=== PATIENT | male | born 1975 | race African-American/Black ===

== ENCOUNTER 2017-05-07 14:34 | Inpatient (IN) | payer MEDICARE, OTHER ==
[~2017-05-07] VITALS: Ht 218.4 cm; Wt 135.4 kg
[~2017-05-07 14:34] MED LIST: ALLO100T PO; CALC1CAP PO; CREON12 PO; DOXA1TAB43 PO; HYDR4TAB PO; LORA1TAB12 PO; SENS90TA PO; SEVEL800 PO
[2017-05-07] MEDS ORDERED: PANT40TA3 PO (14:41)
[2017-05-07] MEDS ORDERED: CALC500 PO (14:41)
[2017-05-07] MEDS ORDERED: Heparin Inj SQ (14:41)
[2017-05-07] MEDS ORDERED: LIDO1ADH4 T-DERMAL (14:41)
[2017-05-07] MEDS ORDERED: METO25TA3 PO (14:41)
[2017-05-07] MEDS ORDERED: MIDO5TAB PO (14:41)
[2017-05-07] MEDS ORDERED: Albuterol-Ipratropium Neb NEB (14:41)
[2017-05-07 15:40] VITALS: BP 110/65; PULSE 126; RESP 20; TEMP 99.7; O2SAT 94
[2017-05-07] MEDS ORDERED: MAGNESIUM HYDROXIDE SUSP 30 ML CUP PO PRN (17:00)
[2017-05-07] MEDS ORDERED: ACETAMINOPHEN 325 MG TAB PO PRN (17:00)
[2017-05-07] MEDS ORDERED: TEMAZEPAM 15 MG CAP PO PRN (17:00)
[2017-05-07] MEDS ORDERED: NALOXONE HCL 0.4 MG/ML AMP IV PUSH PRN (17:00)
[2017-05-07] MEDS ORDERED: SENNOSIDES 8.6 MG TAB PO PRN (17:00)
[2017-05-07] MEDS ORDERED: ONDANSETRON HCL 4 MG/2 ML VIAL IVP PRN (17:00)
[2017-05-07] MEDS ORDERED: LACTULOSE SYRUP 20 GM/30 ML CUP PO PRN (17:00)
[2017-05-07] MEDS ORDERED: BISACODYL 10 MG SUPP RECTAL PRN (17:00)
[2017-05-07] MEDS ORDERED: SODIUM CHLORIDE 0.9% FLUSH 10 ML FLUSH IV FLUSH PRN (17:00)
[2017-05-07] MEDS ORDERED: HYDROmorphone HCL PF 2 MG/ML VIAL IV PRN (17:15)
--- NOTE | 2017-05-07 17:48 | HHI.HP ---
HPI Service [facility] Hospitalists Primary Care Physician Unknown Admission Diagnosis Diagnoses: (1) Atrial fibrillation with RVR Diagnosis: Principal (2) Hypertension (3) End stage renal disease on dialysis (4) Closed fracture of right patella (5) Closed left humeral fracture Chief Complaint: a.fib Travel History International Travel<30 Days: No Contact w/Intl Traveler <30 Da: No Traveled to Known Affected Are: No History of Present Illness Written by Christopher Gonzalez, acting as scribe for [Siomara] on 05/07/17 at 17:48. 51-year-old male with past medical history significant for HTN, ESRD on HD, DM, stent placement, SVT, and A. fib with RVR. Patient was originally hospitalized at [facility] on 04/28/17 following a fall at home which resulted in left humeral fracture and right tibial plateau fracture. Patient was seen and evaluated by orthopedic services while hospitalized to recommended service treatment with no surgery. Discharged from [facility] on 05/03 and admitted to [facility] inpatient rehabilitation. While patient was in [facility] developed A. fib with RVR along with hypotension. Cardiology services were consulted however his mgmt consultant was unable to see him while he was in the outpatient setting. Of note patient was scheduled for cardiac procedure on 05/03 which she was unable to attend due to fractures and transferred to [facility]. While in rehabilitation center he was started on beta coretta which was unable to be administered due to symptomatic hypotension. He was discharged from [facility] inpatient rehabilitation and placed on inpatient status for cardiology to evaluate for possible intervention. He was seen while still in [facility] this morning he is awake, alert, and oriented in no acute distress or pain. He does endorse lightheadedness, SOB along with feeling heart palpitations. He denies any headache, nausea, fevers, chills, chest pains. Discussed with Dr. Dr Granado rehab physician, patient and the physician covering for . Patient will be transferred to telemetry floor once bed becomes available. Patient was made aware of plan and is agreeable. Review of Systems Except as stated in HPI: all other systems reviewed are Neg Past Family Social History Past Medical History End-stage renal disease on hemodialysis Failed renal transplant Hypertension Diabetes Anemia SVT A. fib with RVR Stent placement (unsure what kind) Past Surgical History Renal transplant 2002 AV fistula left forearm Reported Medications Reported Meds & Active Scripts Active Pantoprazole (Pantoprazole Sodium) 40 Mg Tab 40 Mg PO DAILY 30 Days Oyster Calcium (Oyster Shell) 500 Mg Calcium (1250 Mg) Tab 500 Mg PO Q12HR 30 Days Metoprolol Tartrate 25 Mg Tab 12.5 Mg PO Q12HR 30 Days [Heparin Inj] 21556 UNITS/ML Inj 5,000 Units SQ Q12HR 30 Days Midodrine 5 Mg Tab 5 Mg PO TID@07,12,17 30 Days [Albuterol-Ipratropium Neb] 1 AMPULE Nebu 1 Ampule NEB Q8HR NEB 30 Days Lidoderm (Lidocaine) 5 % Adh..patch 1 Patch T-DERMAL DAILY 30 Days Reported Renvela (Sevelamer Carbonate) 800 Mg Tab 800 Mg PO TID Creon (Amylase/Lipase/Protease) 12,000-38,000-60,000 Units Cap 1 Cap PO BIDAC Lorazepam 1 Mg Tab 1 Mg PO Q8H PRN Hydromorphone (Hydromorphone HCl) 4 Mg Tab 8 Mg PO Q4H PRN Doxazosin (Doxazosin Mesylate) 8 Mg Tab 16 Mg PO DAILY Sensipar (Cinacalcet) 90 Mg Tab 90 Mg PO BID Calcium Acetate (Phosphate Binder) 667 Mg Cap 2,668 Mg PO TID Allopurinol 100 Mg Tab 100 Mg PO DAILY Allergies: Coded Allergies: potassium (Verified Allergy, Severe, Respiratory Failure, 05/04/17) amoxicillin (Verified Allergy, Unknown, 05/03/17) clavulanic acid (Verified Allergy, Unknown, 05/03/17) iopamidol (Unverified Allergy, Unknown, ALLERGY TO IODINE, 11/23/16) Family History Reports significant family history of kidney disease. Social History Tobacco: Denies Alcohol use: Occasionally Illicit drug use: Denies Physical Exam Physical Exam GENERAL: This is a well-nourished, well-developed, tall man, in no apparent distress. SKIN: No rashes, ecchymoses or lesions. Cool and dry. HEAD: Atraumatic. Normocephalic. EYES: Pupils equal round and reactive. Extraocular motions intact. No scleral icterus. No injection or drainage. ENT: Nose without bleeding, purulent drainage or septal hematoma. Throat without erythema. Uvula midline. Airway patent. NECK: Trachea midline. No JVD. Supple, nontender. CARDIOVASCULAR: Fast and irregular rate and rhythm without murmurs, gallops, or rubs. Left forearm AV fistula with positive bruit and thrill. RESPIRATORY: Clear to auscultation. Breath sounds equal bilaterally. No wheezes , rales, or rhonchi. GASTROINTESTINAL: Abdomen soft, non-tender, nondistended. No guarding. MUSCULOSKELETAL: Extremities without clubbing or cyanosis. Left arm in sling with visible left elbow edema, right leg immobilizer in place. Capillary refill <3 seconds for left hand right foot toes. NEUROLOGICAL: Awake and alert. Cranial nerves II through XII intact. Motor and sensory grossly within normal limits. Strength limited on left upper extremity and right lower extremity secondary to fractures. Normal speech, no facial droop. Caprini VTE Risk Assessment Caprini VTE Risk Assessment: Mod/High Risk (score >= 2) Caprini Risk Assessment Model Point Value = 1 Point Value = 2 Point Value = 3 Point Value = 5 Age 41-60 Minor surgery BMI > 25 kg/m2 Swollen legs Varicose veins or History of unexplained or recurrent spontaneous Oral contraceptives or hormone replacement Sepsis (< 1 month) Serious lung disease, including pneumonia (< 1 month) Abnormal pulmonary function Acute myocardial infarction Congestive heart failure (< 1 month) History of inflammatory bowel disease Medical patient at bed rest Age 61-74 Arthroscopic surgery Major open surgery (> 45 min) Laparoscopic surgery (> 45 min) Malignancy Confined to bed (> 72 hours) Immobilizing plaster cast Central venous access Age >= 75 History of VTE Family history of VTE Factor V Leiden Prothrombin [id number] Lupus anticoagulant Anticardiolipin antibodies Elevated serum homocysteine Heparin-induced thrombocytopenia Other congenital or acquired thrombophilia Stroke (< 1 month) Elective arthroplasty Hip, pelvis, or leg fracture Acute spinal cord injury (< 1 month) Prophylaxis Regimen Total Risk Factor Score Risk Level Prophylaxis Regimen 0-1 Low Early ambulation 2 Moderate Order ONE of the following: *Sequential Compression Device (SCD) *Heparin 5000 units SQ BID 3-4 Higher Order ONE of the following medications: *Heparin 5000 units SQ TID *Enoxaparin/Lovenox 40 mg SQ daily (WT < 150 kg, CrCl > 30 mL/min) *Enoxaparin/Lovenox 30 mg SQ daily (WT < 150 kg, CrCl > 10-29 mL/min) *Enoxaparin/Lovenox 30 mg SQ BID (WT < 150 kg, CrCl > 30 mL/min) AND/OR *Sequential Compression Device (SCD) 5 or more Highest Order ONE of the following medications: *Heparin 5000 units SQ TID (Preferred with Epidurals) *Enoxaparin/Lovenox 40 mg SQ daily (WT < 150 kg, CrCl > 30 mL/min) *Enoxaparin/Lovenox 30 mg SQ daily (WT < 150 kg, CrCl > 10-29 mL/min) *Enoxaparin/Lovenox 30 mg SQ BID (WT < 150 kg, CrCl > 30 mL/min) AND *Sequential Compression Device (SCD) Assessment and Plan Assessment and Plan 41-year-old male past medical history significant for HTN, ESRD on HD, DM II, stent placement, and SVT. Recently admitted to [facility] on 04/28/17 following a fall sustained who sustained left humeral and right patella fractures both nonoperable. Patient was admitted to [facility], however developed A. fib with RVR and needed to be transferred to inpatient side for cardiology evaluation and possible procedure. A. fib with RVR - Patient with history of SVT. Previously scheduled for cardiac procedure by on date of admission to [facility]. - EKG done while at [facility] reviewed, heart rate 114 showing A. fib with RVR. - Placed consul to 's, spoke to who is covering, discussed patient with him. Appreciate recommendations. - Admitted to tele floor for close monitoring - Continue metoprolol 12.5 mg by mouth twice a day for rate control. Hx HTN now with hypotension - Continue metoprolol due to new onset of A. fib - Continue Midodrin - Monitor for hypotension ESRD on HD - Patient with a history of failed kidney transplant on hemodialysis Tuesday / Tuesday/Tuesday - Completes dialysis at [facility] in [place] under the care of - Consult placed for nephrology to assist with ongoing dialysis treatments, appreciate recommendations Left humeral fracture Right tibial plateau fracture - Patient was seen and evaluated by orthopedic services while at [facility]. Recommendations were made for left humeral fracture to be placed in a shoulder immobilizer, nonweightbearing, conservative treatment with follow-up in 2 weeks as outpatient. - Right tibial plateau fracture conservative treatment recommendation with knee immobilizer, strict nonweightbearing, follow-up as outpatient in 2 weeks. - Rehabilitation efforts by primary team - Pain control with by mouth Dilaudid, IV Dilaudid for breakthrough pain. Continue close monitoring for oversedation. DM II -Hemoglobin A1c checked when patient was in [facility], 4.2. No longer diabetic. Anemia Pica - Secondary to renal disease, patient received iron sucrose on 05/09 with dialysis treatment. DVT prophylaxis - Heparin subcutaneous This note was transcribed by MARCELLO Pedraza. I, Dr. Addie Stringer personally performed the history, physical exam, and medical decision making; and confirmed the accuracy of the information in the transcribed note. Authenticated by Dr. Addie Stringer on 05/07/17 at 17:48. Discussed Condition With Physician Certification 2 Midnight Certification Type: Admission for Inpatient Services Order for Inpatient Services The services are ordered in accordance with Medicare regulations or non- Medicare payer requirements, as applicable. In the case of services not specified as inpatient-only, they are appropriately provided as inpatient services in accordance with the 2-midnight benchmark. Estimated LOS (days): 3 days is the estimated time the patient will need to remain in the hospital, assuming treatment plan goals are met and no additional complications. Post-Hospital Plan: Not yet determined Christopher Gonzalez May 07, 2017 17:48 Addie Stringer MD May 07, 2017 18:22
[2017-05-07] MEDS: HYDROmorphone HCL 2 MG TAB PO PRN (18:40)
[2017-05-07 20:00] VITALS: BP 116/72; PULSE 110; RESP 18; TEMP 97.1; O2SAT 95
[2017-05-07] MEDS: HEPARIN SODIUM - SQ 10,000 UNITS/ML VIAL SQ SCH (20:24)
[2017-05-07] MEDS: LORazepam 1 MG TAB PO PRN (20:24)
[2017-05-07] MEDS: METOPROLOL TARTRATE 25 MG TAB PO SCH (20:24)
[2017-05-07] MEDS: DOCUSATE SODIUM 50 MG/SENNA 8.6 MG TAB PO SCH (20:24)
[2017-05-07] MEDS: SODIUM CHLORIDE 0.9% FLUSH 10 ML FLUSH IV FLUSH SCH (20:24)
[2017-05-07] MEDS: REMOVE OLD PATCH T-DERMAL SCH (21:00)
[2017-05-07] MEDS: CALCIUM ACETATE 667 MG CAP PO SCH (23:03)
[2017-05-07] MEDS: MIDODRINE 5 MG TAB PO SCH (23:03)
[2017-05-07] MEDS: CINACALCET HYDROCHLORIDE 30 MG TAB PO SCH (23:04)
[2017-05-07] MEDS: SEVELAMER CARBONATE 800 MG TAB PO SCH (23:08)
[2017-05-07 23:48] VITALS: PULSE 99
[2017-05-08] VITALS (11 sets, daily range): BP systolic 106–135; BP diastolic 69–80; PULSE 55–99; RESP 16–21; TEMP 97.5–98.3; O2SAT 94–100
[2017-05-08] MEDS: HYDROmorphone HCL 2 MG TAB PO PRN ×4 (03:29→20:28)
[2017-05-08] MEDS: CALCIUM ACETATE 667 MG CAP PO SCH ×3 (08:00→17:00)
[2017-05-08] MEDS: HEPARIN SODIUM - SQ 10,000 UNITS/ML VIAL SQ SCH ×3 (09:00→20:29)
[2017-05-08] MEDS ORDERED: DOXAZOSIN MESYLATE 4 MG TAB PO SCH (09:00)
[2017-05-08] MEDS: DOCUSATE SODIUM 50 MG/SENNA 8.6 MG TAB PO SCH ×2 (09:00→20:23)
--- NOTE | 2017-05-08 09:51 | HHI.PR ---
Subjective Remarks This is a pleasant 51 y/o Female with Hypertension, ESRD on HD, DM, Stent placement, SVT and Atrial fibrillation with RVR, initially at [facility] admitted 04/28/17 secondary to Fall at home with secondary left Humeral fracture and right tibial plateau fracture, seen by Orthopedic surgery and did not recommend surgical procedure, was Discharged from [facility] on 05/03/17 and admitted to [facility] inpatient rehabilitation. While patient was in [facility] developed A. fib with RVR along with hypotension. Cardiology services were consulted however his bag repairer was unable to see him while he was in the outpatient setting. Of note patient was scheduled for cardiac procedure on 05/03 which she was unable to attend due to fractures and transferred to [facility]. While in rehabilitation center he was started on beta coretta which was unable to be administered due to symptomatic hypotension. He was discharged from [facility] and placed on inpatient status for cardiology to evaluate for possible intervention. He was seen while still in [facility] this morning he is awake, alert , and oriented in no acute distress or pain. He does endorse lightheadedness, SOB along with feeling heart palpitations. He denies any headache, nausea, fevers, chills, chest pains. Discussed with Dr. Dr Granado rehab physician, patient and the physician covering for . Patient will be transferred to telemetry floor once bed becomes available. Patient was made aware of plan and is agreeable. Consults placed for Cardiology, Nephrology and Pharmacy Analyst and was transferred to the Floor. 05/08: Seen in his bedroom, discussed with nurse, as per billing specialist to continue medicines, Decreased Doxazosin, awaiting Primary billing specialist doctor Jesus Manuel for further management. No nausea, vomit or diarrhea. Objective Vital Signs Date Time Temp Pulse Resp B/P (MAP) Pulse Ox O2 Delivery O2 Flow Rate FiO2 05/08/17 04:00 98.3 95 19 117/71 (86) 98 05/08/17 03:47 98 05/08/17 00:00 97.5 55 18 135/78 (97) 95 05/07/17 23:48 99 05/07/17 20:28 Room Air 05/07/17 20:00 Room Air 05/07/17 20:00 97.1 110 18 116/72 (87) 95 05/07/17 18:15 Room Air 05/07/17 15:40 99.7 126 20 110/65 (80) 94 I/O 05/07/17 05/07/17 05/07/17 05/08/17 05/08/17 05/08/17 07:00 15:00 23:00 07:00 15:00 23:00 Intake Total 720 ml Balance 720 ml Intake Oral 720 ml # Voids 1 # Bowel Movements 0 Imaging No new Imaging studies. Procedures None Other Results Laboratory Tests Test 05/08/17 13:14 05/09/17 13:08 White Blood Count 4.4 TH/MM3 Red Blood Count 2.58 MIL/MM3 Hemoglobin 8.8 GM/DL Hematocrit 26.1 % Mean Corpuscular Volume 101.2 FL Mean Corpuscular Hemoglobin 34.3 PG Mean Corpuscular Hemoglobin Concent 33.9 % Red Cell Distribution Width 15.2 % Platelet Count 112 TH/MM3 Mean Platelet Volume 8.4 FL Neutrophils (%) (Auto) 72.4 % Lymphocytes (%) (Auto) 15.7 % Monocytes (%) (Auto) 8.4 % Eosinophils (%) (Auto) 2.8 % Basophils (%) (Auto) 0.7 % Neutrophils # (Auto) 3.2 TH/MM3 Lymphocytes # (Auto) 0.7 TH/MM3 Monocytes # (Auto) 0.4 TH/MM3 Eosinophils # (Auto) 0.1 TH/MM3 Basophils # (Auto) 0.0 TH/MM3 CBC Comment DIFF FINAL Differential Comment Blood Urea Nitrogen 62 MG/DL Creatinine 13.37 MG/DL Random Glucose 107 MG/DL Calcium Level 8.6 MG/DL Sodium Level 135 MEQ/L Potassium Level 3.7 MEQ/L Chloride Level 94 MEQ/L Carbon Dioxide Level 30.5 MEQ/L Anion Gap 11 MEQ/L Estimat Glomerular Filtration Rate 5 ML/MIN Objective Remarks GENERAL: This is a well-nourished, well-developed, tall man, in no apparent distress. SKIN: No rashes, ecchymoses or lesions. Cool and dry. HEAD: Atraumatic. Normocephalic. EYES: Pupils equal round and reactive. Extraocular motions intact. No scleral icterus. No injection or drainage. ENT: Nose without bleeding, purulent drainage or septal hematoma. Throat without erythema. Uvula midline. Airway patent. NECK: Trachea midline. No JVD. Supple, nontender. CARDIOVASCULAR: Fast and irregular rate and rhythm without murmurs, gallops, or rubs. Left forearm AV fistula with positive bruit and thrill. RESPIRATORY: Clear to auscultation. Breath sounds equal bilaterally. No wheezes , rales, or rhonchi. GASTROINTESTINAL: Abdomen soft, non-tender, nondistended. No guarding. MUSCULOSKELETAL: Extremities without clubbing or cyanosis. Left arm in sling with visible left elbow edema, right leg immobilizer in place. Capillary refill <3 seconds for left hand right foot toes. NEUROLOGICAL: Awake and alert. Cranial nerves II through XII intact. Motor and sensory grossly within normal limits. Strength limited on left upper extremity and right lower extremity secondary to fractures. Normal speech, no facial droop. Medications and IVs Current Medications Medications (Trade) Dose Ordered Sig/Derrick Route Start Time Stop Time Status Last Admin (NS Flush) 2 ml UNSCH PRN IV FLUSH 05/07/17 17:00 (NS Flush) 2 ml BID IV FLUSH 05/07/17 21:00 05/07/17 20:24 (Tylenol) 650 mg Q4H PRN PO 05/07/17 17:00 (Zofran Inj) 4 mg Q6H PRN IVP 05/07/17 17:00 (Restoril) 15 mg HS PRN PO 05/07/17 17:00 (Narcan Inj) 0.4 mg UNSCH PRN IV PUSH 05/07/17 17:00 ([place]-Colace) 1 tab BID PO 05/07/17 21:00 05/07/17 20:24 (Milk Of Magnesia Liq) 30 ml Q12H PRN PO 05/07/17 17:00 (Senokot) 17.2 mg Q12H PRN PO 05/07/17 17:00 (Dulcolax Supp) 10 mg DAILY PRN RECTAL 05/07/17 17:00 (Lactulose Liq) 30 ml DAILY PRN PO 05/07/17 17:00 (Heparin Inj) 5,000 units Q12HR SQ 05/07/17 21:00 05/07/17 20:24 (Zyloprim) 100 mg DAILY PO 05/08/17 09:00 (Phoslo) 2,668 mg TIDAC PO 05/07/17 17:00 05/07/17 23:03 (Cardura) 16 mg DAILY PO 05/08/17 09:00 (Lidoderm 5% Patch.12 Hr) 1 patch DAILY T-DERMAL 05/08/17 09:00 (Ativan) 1 mg Q8H PRN PO 05/07/17 17:15 05/07/17 20:24 (Lopressor) 12.5 mg Q12HR PO 05/07/17 21:00 05/07/17 20:24 (Proamatine) 5 mg TID@07,12,17 PO 05/07/17 17:14 05/07/17 23:03 (Creon 12-38-60) 1 cap BIDAC PO 05/08/17 07:00 (Protonix) 40 mg DAILY PO 05/08/17 09:00 (Renvela) 800 mg TIDAC PO 05/07/17 17:00 05/07/17 23:08 (Sensipar) 90 mg BIDPC PO 05/07/17 18:00 05/07/17 23:04 (Dilaudid) 2 mg Q4H PRN PO 05/07/17 17:15 05/08/17 03:29 (Dilaudid Pf Inj) 1 mg Q4H PRN IV 05/07/17 17:15 Miscellaneous Information 1 HS T-DERMAL 05/07/17 21:00 05/07/17 21:00 A/P Assessment and Plan 41-year-old male past medical history significant for HTN, ESRD on HD, DM II, stent placement, and SVT. Recently admitted to [facility] on 04/28/17 following a fall sustained who sustained left humeral and right patella fractures both nonoperable. Patient was admitted to [facility], however developed A. fib with RVR and needed to be transferred to inpatient side for cardiology evaluation and possible procedure. A. fib with RVR - Patient with history of SVT. Previously scheduled for cardiac procedure by on date of admission to [facility]. - EKG done while at [facility] reviewed, heart rate 114 showing A. fib with RVR. - Placed consul to 's, spoke to who is covering, discussed patient with him. Appreciate recommendations. - Admitted to tele floor for close monitoring - Continue metoprolol 12.5 mg by mouth twice a day for rate control. Hx HTN now with hypotension - Continue metoprolol due to new onset of A. fib - discontinued Doxazosin. ESRD on HD - Patient with a history of failed kidney transplant on hemodialysis Tuesday / Tuesday/Tuesday - Completes dialysis at [facility] in [place] under the care of - Continue HD M/W/F nephrology consulted. recommended to check PO4, resumed Sensipar Left humeral fracture Right tibial plateau fracture - Patient was seen and evaluated by orthopedic services while at [facility]. Recommendations were made for left humeral fracture to be placed in a shoulder immobilizer, nonweightbearing, conservative treatment with follow-up in 2 weeks as outpatient. - Right tibial plateau fracture conservative treatment recommendation with knee immobilizer, strict nonweightbearing, follow-up as outpatient in 2 weeks. - Rehabilitation efforts by primary team - Pain control with by mouth Dilaudid, IV Dilaudid for breakthrough pain. Continue close monitoring for oversedation. DM II -Hemoglobin A1c checked when patient was in [facility] rehabilitation, 4.2. No longer diabetic. Anemia Pica - Secondary to renal disease, patient received iron sucrose on 05/09 with dialysis treatment. Epo and Venofer by Nephrology DVT prophylaxis - Heparin subcutaneous Discussed Condition With patient and nurse. Discharge Planning Once cleared by billing specialist. Ang Hunt MD May 08, 2017 09:51
[2017-05-08] MEDS: CINACALCET HYDROCHLORIDE 30 MG TAB PO SCH ×3 (10:21→20:24)
[2017-05-08] MEDS: SEVELAMER CARBONATE 800 MG TAB PO SCH ×4 (10:21→20:25)
[2017-05-08] MEDS: ALLOPURINOL 100 MG TAB PO SCH (10:22)
[2017-05-08] MEDS: METOPROLOL TARTRATE 25 MG TAB PO SCH ×2 (10:22→20:24)
[2017-05-08] MEDS: MIDODRINE 5 MG TAB PO SCH ×3 (10:22→17:51)
[2017-05-08] MEDS: LIPASE/PROTEASE/AMYLASE (12,000/38,000/60,000) CAP PO SCH ×3 (10:22→20:23)
[2017-05-08] MEDS: REMOVE OLD PATCH T-DERMAL SCH (10:23)
[2017-05-08] MEDS: LIDOCAINE HCL 5% PATCH T-DERMAL SCH (10:23)
[2017-05-08] MEDS: SODIUM CHLORIDE 0.9% FLUSH 10 ML FLUSH IV FLUSH SCH ×2 (10:27→20:29)
[2017-05-08] MEDS: PANTOPRAZOLE SOD 40 MG DELAYED RELEASE TAB PO SCH (10:28)
--- NOTE | 2017-05-08 10:36 | MB ---
cc: JUAN C MARQUEZ DO DATE OF CONSULTATION: May 07, 2017 REASON FOR CONSULTATION Atrial fibrillation with rapid ventricular response. HISTORY OF PRESENT ILLNESS Ángel Kay is a pleasant 51-year-old male who is known to my partner Dr. Ken and presented to [facility] on May 03, 2017. Dr. Ken originally evaluated Mr. Kay when he was attempting to be placed on the transplant list. Apparently, Mr. Kay continues to have atrial fibrillation with rapid ventricular response and Dr. Ken had talked to him about doing possible atrial fibrillation ablation. This was originally scheduled on May 03, 2017. Days before the procedure the patient was helping his mother move something at home and had a mechanical fall which resulted in a left humeral fracture and a right tibial plateau fracture. He was hospitalized at [facility] where he was seen by orthopedics who recommended nonsurgical management. He was transferred to [facility] on May 03, 2017. While in [facility] he has had multiple episodes of atrial fibrillation with rapid ventricular response and during these episodes he does become mildly hypotensive. The patient also states that whenever he is doing his rehab that his heart rates become elevated above 100. While in rehab he was started on metoprolol tartrate but most of the time this is unable to be administered due to symptomatic hypotension. Because of this he was discharged from [facility] and placed in inpatient status in [facility]. In seeing him he denies current chest pain, shortness of breath or palpitations. PAST MEDICAL HISTORY 1. Atrial fibrillation with rapid ventricular response. 2. End-stage renal disease on hemodialysis. 3. History of failed renal transplant. 4. Hypertension. 5. Diabetes. 6. Anemia. 7. Unspecified SVT. 8. Coronary artery disease. PAST SURGICAL HISTORY 1. Renal transplant (2002) which subsequently failed. 2. Left forearm AV fistula. 3. History of stent placement with unknown coronary anatomy. ALLERGIES 1. AMOXICILLIN. 2. CLAVULANIC ACID. 3. IOPAMIDIOL. 4. POTASSIUM. MEDICATIONS 1. Midodrine 5 mg t.i.d. 2. Doxazosin 16 mg daily. 3. Metoprolol tartrate 12.5 mg every 12 hours. 4. Hydromorphone 8 mg every 4 hours as needed for pain. 5. Ativan 1 mg every 8 hours as needed for anxiety. 6. Calcium acetate 2668 mg t.i.d. 7. Renvela 800 mg t.i.d. 8. Creon one tab b.i.d. with meals. 9. Protonix 40 mg daily. 10. Sensipar 90 mg b.i.d. 11. Lidoderm patch daily. 12. Allopurinol 100 mg daily. FAMILY HISTORY Denies premature coronary artery disease or sudden cardiac within the family. SOCIAL HISTORY Denies tobacco or drug abuse. Does occasionally drink alcohol. REVIEW OF SYSTEMS 14-systems were reviewed including osteopathic pertinent positives and negatives above, otherwise negative. PHYSICAL EXAMINATION VITAL SIGNS: Temperature 99.7, heart rate 126, blood pressure 110/65, respirations 20, pulse ox 94% on room air. GENERAL: The patient appears well, in no acute distress, alert awake and oriented x3. HEENT: Extraocular muscles intact. Mucous membranes moist. NECK: Neck is supple. No JVD at 45 degrees. No carotid bruits heard bilaterally. Carotid upstroke is brisk in nature. HEART: Heart is irregularly, irregular. Positive first and second heart sounds with no murmurs, gallops or rubs. LUNGS: Lungs are clear to auscultation bilaterally. No wheezes, rales or rhonchi. ABDOMEN: Soft, nontender, nondistended. No organomegaly noted. EXTREMITIES: Left upper extremity in a sling. Right lower extremity in a brace. No edema noted. Left forearm with AV fistula. NEUROLOGIC: No focal deficits. SKIN: Warm, dry and intact. OSTEOPATHIC: No kyphoscoliosis, lordosis or paraspinal tender points. LABORATORY FINDINGS Hemoglobin 8.9, hematocrit 25.9, platelets 119. Potassium 3.6, BUN 46, creatinine 11.04. IMPRESSION 1. Atrial fibrillation with rapid ventricular response. 2. Mechanical fall. 3. Left humeral fracture. 4. Right tibial plateau fracture. 5. Mild hypotension with atrial fibrillation with rapid ventricular response. 6. End-stage renal disease on hemodialysis. 7. History of failed renal transplant. 8. History of hypertension. 9. History of diabetes. 10. History of coronary artery disease. RECOMMENDATIONS 1. Mr. Kay appears to have episodes of atrial fibrillation with rapid ventricular response and has been somewhat detrimental to his rehab. 2. We will attempt to control his heart rate as best we can. At this time I will attempt to increase his beta coretta therapy. 3. I would plan to decrease his doxazosin as this will make him overall hypotensive and allow for us to possibly place him on further AV mirna blocking agents. 4. Will discuss the patient with Dr. Ken who will follow up on the patient tomorrow. 5. Most likely will need to wait on atrial fibrillation ablation if needed as the patient has not been on anticoagulant. 6. Further recommendations will be made based on the hospital course. Thank you for allowing me to see Ángel Kay, if there are any questions please do not hesitate to call. Juan C Marquez DO VGP/TLL /8:56 AM /10:12 AM
--- NOTE | 2017-05-08 12:57 | PD.CARD.PN ---
Subjective Subjective Remarks No events overnight Heart rates from 80-120 No chest pain/SOB Objective Medications Current Medications Medications (Trade) Dose Ordered Sig/Derrick Route Start Time Stop Time Status Last Admin (NS Flush) 2 ml UNSCH PRN IV FLUSH 05/07/17 17:00 (NS Flush) 2 ml BID IV FLUSH 05/07/17 21:00 05/08/17 10:27 (Tylenol) 650 mg Q4H PRN PO 05/07/17 17:00 (Zofran Inj) 4 mg Q6H PRN IVP 05/07/17 17:00 (Restoril) 15 mg HS PRN PO 05/07/17 17:00 (Narcan Inj) 0.4 mg UNSCH PRN IV PUSH 05/07/17 17:00 ([place]-Colace) 1 tab BID PO 05/07/17 21:00 05/07/17 20:24 (Milk Of Magnesia Liq) 30 ml Q12H PRN PO 05/07/17 17:00 (Senokot) 17.2 mg Q12H PRN PO 05/07/17 17:00 (Dulcolax Supp) 10 mg DAILY PRN RECTAL 05/07/17 17:00 (Lactulose Liq) 30 ml DAILY PRN PO 05/07/17 17:00 (Heparin Inj) 5,000 units Q12HR SQ 05/07/17 21:00 05/07/17 20:24 (Zyloprim) 100 mg DAILY PO 05/08/17 09:00 05/08/17 10:22 (Phoslo) 2,668 mg TIDAC PO 05/07/17 17:00 05/07/17 23:03 (Cardura) 16 mg DAILY PO 05/08/17 09:00 05/08/17 10:27 (Lidoderm 5% Patch.12 Hr) 1 patch DAILY T-DERMAL 05/08/17 09:00 05/08/17 10:23 (Ativan) 1 mg Q8H PRN PO 05/07/17 17:15 05/07/17 20:24 (Lopressor) 12.5 mg Q12HR PO 05/07/17 21:00 05/08/17 10:22 (Proamatine) 5 mg TID@07,12,17 PO 05/07/17 17:14 05/08/17 10:22 (Creon 12-38-60) 1 cap BIDAC PO 05/08/17 07:00 05/08/17 10:22 (Protonix) 40 mg DAILY PO 05/08/17 09:00 05/08/17 10:28 (Renvela) 800 mg TIDAC PO 05/07/17 17:00 05/08/17 10:21 (Sensipar) 90 mg BIDPC PO 05/07/17 18:00 05/08/17 10:21 (Dilaudid) 2 mg Q4H PRN PO 05/07/17 17:15 05/08/17 10:29 (Dilaudid Pf Inj) 1 mg Q4H PRN IV 05/07/17 17:15 Miscellaneous Information 1 HS T-DERMAL 05/07/17 21:00 05/08/17 10:23 Vital Signs / I&O Vital Signs Date Time Temp Pulse Resp B/P (MAP) Pulse Ox O2 Delivery O2 Flow Rate FiO2 05/08/17 08:00 99 05/08/17 08:00 97.6 98 21 108/78 (88) 95 05/08/17 04:00 98.3 95 19 117/71 (86) 98 05/08/17 03:47 98 05/08/17 00:00 97.5 55 18 135/78 (97) 95 05/07/17 23:48 99 05/07/17 20:28 Room Air 05/07/17 20:00 Room Air 05/07/17 20:00 97.1 110 18 116/72 (87) 95 05/07/17 18:15 Room Air 05/07/17 15:40 99.7 126 20 110/65 (80) 94 I/O 05/07/17 05/07/17 05/07/17 05/08/17 05/08/17 05/08/17 07:00 15:00 23:00 07:00 15:00 23:00 Intake Total 720 ml Balance 720 ml Intake Oral 720 ml # Voids 1 # Bowel Movements 0 Physical Exam GENERAL: NAD, AAOx3 SKIN: Warm and dry. HEAD: Atraumatic. Normocephalic. EYES: Pupils equal and round. No scleral icterus. No injection or drainage. ENT: No nasal bleeding or discharge. Mucous membranes pink and moist. NECK: Trachea midline. No JVD. CARDIOVASCULAR: Irregularly irregular RESPIRATORY: No accessory muscle use. Clear to auscultation. Breath sounds equal bilaterally. GASTROINTESTINAL: Abdomen soft, non-tender, nondistended. Hepatic and splenic margins not palpable. MUSCULOSKELETAL: Extremities without clubbing, cyanosis, or edema. Left arm in sling, right leg in brace NEUROLOGICAL: Awake and alert. No obvious cranial nerve deficits. Motor grossly within normal limits. Five out of 5 muscle strength in the arms and legs. Normal speech. PSYCHIATRIC: Appropriate mood and affect; insight and judgment normal. Assessment and Plan Problem List: (1) Atrial fibrillation with RVR ICD Codes: I48.91 - Unspecified atrial fibrillation (2) Closed left humeral fracture ICD Codes: S42.302A - Unspecified fracture of shaft of humerus, left arm, initial encounter for closed fracture Status: Acute (3) Closed fracture of right patella ICD Codes: S82.001A - Unspecified fracture of right patella, initial encounter for closed fracture Status: Acute (4) End stage renal disease on dialysis ICD Codes: N18.6 - End stage renal disease; Z99.2 - Dependence on renal dialysis Status: Chronic (5) Hypertension ICD Codes: I10 - Essential (primary) hypertension Status: Chronic (6) Anxiety ICD Codes: F41.9 - Anxiety disorder, unspecified Status: Acute Assessment and Plan 1) Afib with RVR Heart rates somewhat controlled, but when the patient is trying to do rehab he ends up with RVR 2) Decrease Doxazosin Hopefully will allow for further AV mirna blocking agents Will discuss with nephrology 3) If difficulty controlling heart rates then most likely Afib ablation in the future 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 Ken He or I will follow up tomorrow on the patient Juan C Cochran May 08, 2017 12:57
[2017-05-08 14:14] LABS: AUTOMATED NEUTROPHIL # 3.2 TH/MM3 (1.8-7.7); BASOPHIL % 0.7 % (0.0-2.0); EOSINOPHIL # 0.1 TH/MM3 (0-0.4); EOSINOPHIL % 2.8 % (0.0-4.0); HEMATOCRIT 26.1 % (39.0-51.0); HEMOGLOBIN 8.8 GM/DL (13.0-17.0); LYMPH % 15.7 % (9.0-44.0); LYMPHOCYTE # 0.7 TH/MM3 (1.0-4.8); MEAN CELL VOLUME 101.2 FL (80.0-100.0); MEAN CORPUSCULAR HEMOGLOBIN 34.3 PG (27.0-34.0); MEAN CORPUSCULAR HGB CONC 33.9 % (32.0-36.0); MEAN PLATELET VOLUME 8.4 FL (7.0-11.0); MONO % 8.4 % (0.0-8.0); MONOCYTE # 0.4 TH/MM3 (0-0.9); NEUT % 72.4 % (16.0-70.0); PLATELET COUNT 112 TH/MM3 (150-450); RED BLOOD COUNT 2.58 MIL/MM3 (4.50-5.90); RED CELL DISTRIBUTION WIDTH 15.2 % (11.6-17.2); WHITE BLOOD COUNT 4.4 TH/MM3 (4.0-11.0)
[2017-05-08 14:28] LABS: BICARBONATE 30.5 MEQ/L (21.0-32.0); CALCIUM 8.6 MG/DL (8.5-10.1)
[2017-05-08 14:51] LABS: CREATININE 13.37 MG/DL (0.60-1.30)
[2017-05-08] MEDS ORDERED: SODIUM CHLOR 0.9% 1000 ML INJ 1,000 ML IV PRN (15:13)
[2017-05-08] MEDS ORDERED: SODIUM CHLOR 0.9% 1000 ML INJ 1,000 ML OTHER PRN ×2 (15:13)
[2017-05-08] MEDS ORDERED: NITROGLYCERIN 0.4 MG SL 25 TABS/BTL SL PRN (15:15)
[2017-05-08] MEDS ORDERED: GELATIN 12 MM/7 MM FOAM TOP PRN (15:15)
[2017-05-08] MEDS ORDERED: MANNITOL 12.5 GM/50 ML VIAL IV PRN (15:15)
[2017-05-08] MEDS ORDERED: ALBUMIN 25% INJ 100 ML IV PRN (15:15)
[2017-05-08] MEDS ORDERED: ACETAMINOPHEN 325 MG TAB PO PRN (15:15)
[2017-05-08] MEDS ORDERED: SODIUM CHLORIDE 0.9% FLUSH 10 ML FLUSH IV FLUSH PRN (15:15)
[2017-05-08] MEDS ORDERED: HEPARIN SODIUM - IV 10,000 UNITS/10 ML VIAL IV FLUSH PRN (15:15)
[2017-05-08] MEDS ORDERED: ONDANSETRON HCL 4 MG/2 ML VIAL IV PUSH PRN (15:15)
[2017-05-08] MEDS ORDERED: HEPARIN SODIUM - IV 10,000 UNITS/10 ML VIAL PRN (15:15)
[2017-05-08] MEDS ORDERED: cloNIDine HCL 0.1 MG TAB PO PRN (15:15)
[2017-05-08] MEDS ORDERED: GENTAMICIN SULFATE 20 MG/2 ML VIAL OTHER PRN (15:15)
[2017-05-08] MEDS ORDERED: diphenhydrAMINE HCL 25 MG CAP PO PRN (15:15)
[2017-05-09] VITALS (9 sets, daily range): BP systolic 104–115; BP diastolic 63–78; PULSE 72–96; RESP 18–20; TEMP 97–97.8; O2SAT 94–100
[2017-05-09] MEDS: HYDROmorphone HCL 2 MG TAB PO PRN ×3 (04:12→22:40)
[2017-05-09] MEDS: CALCIUM ACETATE 667 MG CAP PO SCH ×3 (08:00→17:00)
[2017-05-09] MEDS: HEPARIN SODIUM - SQ 10,000 UNITS/ML VIAL SQ SCH ×2 (09:00→21:00)
[2017-05-09] MEDS: DOCUSATE SODIUM 50 MG/SENNA 8.6 MG TAB PO SCH ×2 (09:00→21:00)
[2017-05-09] MEDS: SODIUM CHLORIDE 0.9% FLUSH 10 ML FLUSH IV FLUSH SCH ×2 (09:03→22:29)
[2017-05-09] MEDS: LIDOCAINE HCL 5% PATCH T-DERMAL SCH (09:04)
[2017-05-09] MEDS: PANTOPRAZOLE SOD 40 MG DELAYED RELEASE TAB PO SCH (09:56)
[2017-05-09] MEDS: MIDODRINE 5 MG TAB PO SCH ×3 (09:57→18:27)
[2017-05-09] MEDS: ALLOPURINOL 100 MG TAB PO SCH (10:00)
[2017-05-09] MEDS: SEVELAMER CARBONATE 800 MG TAB PO SCH ×3 (10:24→18:27)
[2017-05-09] MEDS: LIPASE/PROTEASE/AMYLASE (12,000/38,000/60,000) CAP PO SCH ×2 (10:25→16:00)
[2017-05-09] MEDS: CINACALCET HYDROCHLORIDE 30 MG TAB PO SCH (10:27)
--- NOTE | 2017-05-09 10:43 | PD.CONS ---
HPI Service Nephrology Consult Requested By Dr. Stringer Reason for Consult ESRD on HD Primary Care Physician Unknown History of Present Illness The patient is a 41 yo AA male who is seen at [facility] for management of his dialysis. His outpatient facility is [facility] with Dr. Vega. He was sent here for rehab from [facility] after he sustained a right tibial fracture and left humeral fracture after fall at home on 04/28/17. He states his typical dialysis is MWF and last outpatient dialysis was 04/27/17. Reports he did not have dialysis during hospitalization in [place] until for short session. Has been on dialysis for 17 years minus 5 years from [id number] after he received a kidney transplant, but unfortunately failed and has been on HD again since 2007. He dialyzes via L forearm AVF on MWF for 5.5h treatments. Was seen initially in [place], but seen on medical floor today as he was transferred d/t A [facility] RVR. Pt denies any symptom at the present and says he is unaware of any symptoms previously. (Shasta Mujica) Review of Systems Constitutional: COMPLAINS OF: Fatigue Gastrointestinal: COMPLAINS OF: Abdominal pain (with medications) (Shasta Mujica) Past Family Social History Allergies: Coded Allergies: potassium (Verified Allergy, Severe, Respiratory Failure, 05/04/17) amoxicillin (Verified Allergy, Unknown, 05/03/17) clavulanic acid (Verified Allergy, Unknown, 05/03/17) iopamidol (Unverified Allergy, Unknown, ALLERGY TO IODINE, 11/23/16) Past Medical History ESRD on HD HTN Previous diabetic, but not on any medications for many years as he lost a significant amount of weight Anxiety Hx of Katz Act after suicide threat in 2000 Hx of failed kidney transplant Past Surgical History AVF placement in L forearm Kidney transplant in 2002 Reported Medications Pantoprazole (Pantoprazole Sodium) 40 Mg Tab 40 Mg PO DAILY 30 Days Oyster Calcium (Oyster Shell) 500 Mg Calcium (1250 Mg) Tab 500 Mg PO Q12HR 30 Days Metoprolol Tartrate 25 Mg Tab 12.5 Mg PO Q12HR 30 Days [Heparin Inj] 47026 UNITS/ML Inj 5,000 Units SQ Q12HR 30 Days Midodrine 5 Mg Tab 5 Mg PO TID@07,12,17 30 Days [Albuterol-Ipratropium Neb] 1 AMPULE Nebu 1 Ampule NEB Q8HR NEB 30 Days Lidoderm (Lidocaine) 5 % Adh..patch 1 Patch T-DERMAL DAILY 30 Days Renvela (Sevelamer Carbonate) 800 Mg Tab 800 Mg PO TID Creon (Amylase/Lipase/Protease) 12,000-38,000-60,000 Units Cap 1 Cap PO BIDAC Lorazepam 1 Mg Tab 1 Mg PO Q8H PRN Hydromorphone (Hydromorphone HCl) 4 Mg Tab 8 Mg PO Q4H PRN Doxazosin (Doxazosin Mesylate) 8 Mg Tab 16 Mg PO DAILY Sensipar (Cinacalcet) 90 Mg Tab 90 Mg PO BID Calcium Acetate (Phosphate Binder) 667 Mg Cap 2,668 Mg PO TID Allopurinol 100 Mg Tab 100 Mg PO DAILY Active Ordered Medications Current Medications Medications (Trade) Dose Ordered Sig/Derrick Route Start Time Stop Time Status Last Admin (NS Flush) 2 ml UNSCH PRN IV FLUSH 05/07/17 17:00 (NS Flush) 2 ml BID IV FLUSH 05/07/17 21:00 05/09/17 09:03 (Tylenol) 650 mg Q4H PRN PO 05/07/17 17:00 (Zofran Inj) 4 mg Q6H PRN IVP 05/07/17 17:00 (Restoril) 15 mg HS PRN PO 05/07/17 17:00 (Narcan Inj) 0.4 mg UNSCH PRN IV PUSH 05/07/17 17:00 ([place]-Colace) 1 tab BID PO 05/07/17 21:00 05/08/17 20:23 (Milk Of Magnesia Liq) 30 ml Q12H PRN PO 05/07/17 17:00 (Senokot) 17.2 mg Q12H PRN PO 05/07/17 17:00 (Dulcolax Supp) 10 mg DAILY PRN RECTAL 05/07/17 17:00 (Lactulose Liq) 30 ml DAILY PRN PO 05/07/17 17:00 (Heparin Inj) 5,000 units Q12HR SQ 05/07/17 21:00 05/08/17 20:29 (Zyloprim) 100 mg DAILY PO 05/08/17 09:00 05/09/17 10:00 (Phoslo) 2,668 mg TIDAC PO 05/07/17 17:00 05/07/17 23:03 (Lidoderm 5% Patch.12 Hr) 1 patch DAILY T-DERMAL 05/08/17 09:00 05/09/17 09:04 (Ativan) 1 mg Q8H PRN PO 05/07/17 17:15 05/07/17 20:24 (Lopressor) 12.5 mg Q12HR PO 05/07/17 21:00 05/08/17 20:24 (Proamatine) 5 mg TID@07,12,17 PO 05/07/17 17:14 05/09/17 09:57 (Creon 12-38-60) 1 cap BIDAC PO 05/08/17 07:00 05/09/17 10:25 (Protonix) 40 mg DAILY PO 05/08/17 09:00 05/09/17 09:56 (Renvela) 800 mg TIDAC PO 05/07/17 17:00 05/09/17 10:24 (Sensipar) 90 mg BIDPC PO 05/07/17 18:00 05/09/17 10:27 (Dilaudid) 2 mg Q4H PRN PO 05/07/17 17:15 05/09/17 04:12 (Dilaudid Pf Inj) 1 mg Q4H PRN IV 05/07/17 17:15 Miscellaneous Information 1 HS T-DERMAL 05/07/17 21:00 05/08/17 10:23 (Cardura) 8 mg DAILY PO 05/09/17 09:00 Sodium Chloride 1,000 ml @ 0 mls/hr Q0M PRN OTHER 05/08/17 15:13 (Heparin Inj) 8,000 units UNSCH PRN IV FLUSH 05/08/17 15:15 Sodium Chloride 1,000 ml @ 200 mls/hr Q5H PRN IV 05/08/17 15:13 Sodium Chloride 1,000 ml @ 0 mls/hr Q0M PRN OTHER 05/08/17 15:13 (Mannitol Inj) 12.5 gm UNSCH PRN IV 05/08/17 15:15 Albumin Human 100 ml @ 60 mls/hr UNSCH PRN IV 05/08/17 15:15 (NS Flush) 5 ml UNSCH PRN IV FLUSH 05/08/17 15:15 (Heparin Inj) UNSCH PRN .XX 05/08/17 15:15 (Gentamicin Inj) 20 mg UNSCH PRN OTHER 05/08/17 15:15 (Zofran Inj) 4 mg UNSCH PRN IV PUSH 05/08/17 15:15 (Tylenol) 650 mg UNSCH PRN PO 05/08/17 15:15 (Benadryl) 25 mg UNSCH PRN PO 05/08/17 15:15 (Nitrostat Sl) 0.4 mg UNSCH PRN SL 05/08/17 15:15 (Catapres) 0.1 mg UNSCH PRN PO 05/08/17 15:15 (Epogen Inj) 10,000 units UNSCH PRN IV PUSH 05/08/17 15:15 (Gelfoam 12 Mm/7 Mm Top) 1 foam UNSCH PRN TOP 05/08/17 15:15 Family History NC Social History Denies any illicits, tobacco, EtOH (Shasta Mujica) Physical Exam Vital Signs Vital Signs Date Time Temp Pulse Resp B/P (MAP) Pulse Ox O2 Delivery O2 Flow Rate FiO2 05/09/17 09:55 99 21 05/09/17 08:42 97.2 72 20 115/75 (88) 99 05/09/17 04:10 97.8 78 18 104/68 (80) 99 05/09/17 00:00 97.8 75 18 112/78 (89) 96 05/08/17 23:45 84 05/08/17 20:43 96 21 05/08/17 20:35 Room Air 05/08/17 20:00 97.7 91 16 115/80 (92) 94 05/08/17 19:47 93 05/08/17 16:09 97.7 84 20 106/69 (81) 100 05/08/17 16:00 83 05/08/17 12:00 97.6 93 20 118/70 (86) 98 05/08/17 12:00 88 05/08/17 11:30 16 Physical Exam GENERAL: Sitting up in bed having breakfast SKIN: Warm and dry. HEAD: Atraumatic. Normocephalic. EYES: Pupils equal and round. No scleral icterus. No injection or drainage. ENT: No nasal bleeding or discharge. Mucous membranes pink and moist. NECK: Trachea midline. No JVD. CARDIOVASCULAR: Regular rate and rhythm. RESPIRATORY: No accessory muscle use. Clear to auscultation. Breath sounds equal bilaterally. GASTROINTESTINAL: Abdomen soft, non-tender, nondistended. Hepatic and splenic margins not palpable. MUSCULOSKELETAL: Extremities without clubbing. Stabilizer present RLE. 1+ pitting edema LLE NEUROLOGICAL: Awake and alert. Normal speech. PSYCHIATRIC: Appropriate mood and affect; insight and judgment normal. Laboratory Laboratory Tests Test 05/08/17 13:14 White Blood Count 4.4 Red Blood Count 2.58 Hemoglobin 8.8 Hematocrit 26.1 Mean Corpuscular Volume 101.2 Mean Corpuscular Hemoglobin 34.3 Mean Corpuscular Hemoglobin Concent 33.9 Red Cell Distribution Width 15.2 Platelet Count 112 Mean Platelet Volume 8.4 Neutrophils (%) (Auto) 72.4 Lymphocytes (%) (Auto) 15.7 Monocytes (%) (Auto) 8.4 Eosinophils (%) (Auto) 2.8 Basophils (%) (Auto) 0.7 Neutrophils # (Auto) 3.2 Lymphocytes # (Auto) 0.7 Monocytes # (Auto) 0.4 Eosinophils # (Auto) 0.1 Basophils # (Auto) 0.0 CBC Comment DIFF FINAL Differential Comment Blood Urea Nitrogen 62 Creatinine 13.37 Random Glucose 107 Calcium Level 8.6 Sodium Level 135 Potassium Level 3.7 Chloride Level 94 Carbon Dioxide Level 30.5 Anion Gap 11 Estimat Glomerular Filtration Rate 5 (Shasta Mujica) Result Diagram: 05/08/17 1314 05/08/17 1314 Assessment and Plan Problem List: (1) End stage renal disease on dialysis ICD Codes: N18.6 - End stage renal disease; Z99.2 - Dependence on renal dialysis Status: Chronic Plan: To continue HD MWF as per outpatient schedule. Check PO4 and albumin. Sensipar was on hold at [place] given hypocalcemia. Will resume if needed. Medications should be adjusted for the patient's ESRD. Avoid gadolinium. (2) Atrial fibrillation with RVR ICD Codes: I48.91 - Unspecified atrial fibrillation Plan: Management as per cardiology. Mention of decrease or stopping Doxazosin. OK from renal standpoint (3) Hypertension ICD Codes: I10 - Essential (primary) hypertension Status: Chronic Plan: By hx, but hypotensive in house. Midodrine if needed with HD (4) Anemia ICD Codes: D64.9 - Anemia, unspecified Status: Chronic Plan: Epo and Venofer with HD (5) Pica in adults ICD Codes: F50.89 - Other specified eating disorder Plan: Will replete iron and electrolytes. May need psych consultation in the future. (Shasta Mujica) Assessment and Plan The exam, history, and the medical decision-making described in the above note were completed with the assistance of the PA-Jose. I reviewed and agree with the findings presented. (Joanne Peters MD) Shasta Mujica May 09, 2017 10:43 Joanne Peters MD May 09, 2017 16:06
[2017-05-09] MEDS ORDERED: IRON SUCROSE INJ 200 MG in SODIUM CHLORIDE 0.9% INJ 100 ML IV SCH (12:00)
--- NOTE | 2017-05-09 14:23 | HHI.PR ---
Subjective Remarks This is a pleasant 51 y/o Female with Hypertension, ESRD on HD, DM, Stent placement, SVT and Atrial fibrillation with RVR, initially at [facility] admitted 04/28/17 secondary to Fall at home with secondary left Humeral fracture and right tibial plateau fracture, seen by Orthopedic surgery and did not recommend surgical procedure, was Discharged from [place] on 05/03/17 and admitted to [facility] inpatient rehabilitation. While patient was in [facility] developed A. fib with RVR along with hypotension. Cardiology services were consulted however his network engineering advisor was unable to see him while he was in the outpatient setting. Of note patient was scheduled for cardiac procedure on 05/03 which she was unable to attend due to fractures and transferred to [facility]. While in rehabilitation center he was started on beta coretta which was unable to be administered due to symptomatic hypotension. He was discharged from [facility] rehabilitation and placed on inpatient status for cardiology to evaluate for possible intervention. He was seen while still in [facility] this morning he is awake, alert , and oriented in no acute distress or pain. He does endorse lightheadedness, SOB along with feeling heart palpitations. He denies any headache, nausea, fevers, chills, chest pains. Discussed with Dr. Dr Granado rehab physician, patient and the physician covering for . Patient will be transferred to telemetry floor once bed becomes available. Patient was made aware of plan and is agreeable. Consults placed for Cardiology, Nephrology and Canine Enforcement Officer and was transferred to the Floor. 05/08: Seen in his bedroom, discussed with nurse, as per renewals specialist to continue medicines, Decreased Doxazosin, awaiting Primary renewals specialist doctor Jesus Manuel for further management. 05/09: Stable in his room, discussed with nurse, no new issues, no nausea, vomit or diarrhea, awaiting final by renewals specialist. Objective Vital Signs Date Time Temp Pulse Resp B/P (MAP) Pulse Ox O2 Delivery O2 Flow Rate FiO2 05/09/17 12:32 97.0 81 20 114/68 (83) 99 05/09/17 09:55 99 21 05/09/17 08:42 97.2 72 20 115/75 (88) 99 05/09/17 04:10 97.8 78 18 104/68 (80) 99 05/09/17 00:00 97.8 75 18 112/78 (89) 96 05/08/17 23:45 84 05/08/17 20:43 96 21 05/08/17 20:35 Room Air 05/08/17 20:00 97.7 91 16 115/80 (92) 94 05/08/17 19:47 93 05/08/17 16:09 97.7 84 20 106/69 (81) 100 05/08/17 16:00 83 I/O 05/08/17 05/08/17 05/08/17 05/09/17 05/09/17 05/09/17 07:00 15:00 23:00 07:00 15:00 23:00 Intake Total 720 ml 120 ml Output Total 0 ml Balance 720 ml 120 ml Intake Oral 720 ml 120 ml Output Urine Total 0 ml # Voids 1 # Bowel Movements 0 1 2 Result Diagram: 05/08/17 1314 05/08/17 1314 Imaging No new imaging studies. Procedures None Other Results Laboratory Tests Test 05/08/17 13:14 05/09/17 13:08 White Blood Count 4.4 TH/MM3 Red Blood Count 2.58 MIL/MM3 Hemoglobin 8.8 GM/DL Hematocrit 26.1 % Mean Corpuscular Volume 101.2 FL Mean Corpuscular Hemoglobin 34.3 PG Mean Corpuscular Hemoglobin Concent 33.9 % Red Cell Distribution Width 15.2 % Platelet Count 112 TH/MM3 Mean Platelet Volume 8.4 FL Neutrophils (%) (Auto) 72.4 % Lymphocytes (%) (Auto) 15.7 % Monocytes (%) (Auto) 8.4 % Eosinophils (%) (Auto) 2.8 % Basophils (%) (Auto) 0.7 % Neutrophils # (Auto) 3.2 TH/MM3 Lymphocytes # (Auto) 0.7 TH/MM3 Monocytes # (Auto) 0.4 TH/MM3 Eosinophils # (Auto) 0.1 TH/MM3 Basophils # (Auto) 0.0 TH/MM3 CBC Comment DIFF FINAL Differential Comment Blood Urea Nitrogen 62 MG/DL Creatinine 13.37 MG/DL Random Glucose 107 MG/DL Calcium Level 8.6 MG/DL Sodium Level 135 MEQ/L Potassium Level 3.7 MEQ/L Chloride Level 94 MEQ/L Carbon Dioxide Level 30.5 MEQ/L Anion Gap 11 MEQ/L Estimat Glomerular Filtration Rate 5 ML/MIN Objective Remarks GENERAL: This is a well-nourished, well-developed, tall man, in no apparent distress. SKIN: No rashes, ecchymoses or lesions. Cool and dry. HEAD: Atraumatic. Normocephalic. EYES: Pupils equal round and reactive. Extraocular motions intact. No scleral icterus. No injection or drainage. ENT: Nose without bleeding, purulent drainage or septal hematoma. Throat without erythema. Uvula midline. Airway patent. NECK: Trachea midline. No JVD. Supple, nontender. CARDIOVASCULAR: Fast and irregular rate and rhythm without murmurs, gallops, or rubs. Left forearm AV fistula with positive bruit and thrill. RESPIRATORY: Clear to auscultation. Breath sounds equal bilaterally. No wheezes , rales, or rhonchi. GASTROINTESTINAL: Abdomen soft, non-tender, nondistended. No guarding. MUSCULOSKELETAL: Extremities without clubbing or cyanosis. Left arm in sling with visible left elbow edema, right leg immobilizer in place. Capillary refill <3 seconds for left hand right foot toes. NEUROLOGICAL: Awake and alert. Cranial nerves II through XII intact. Motor and sensory grossly within normal limits. Strength limited on left upper extremity and right lower extremity secondary to fractures. Normal speech, no facial droop. Medications and IVs Current Medications Medications (Trade) Dose Ordered Sig/Derrick Route Start Time Stop Time Status Last Admin (NS Flush) 2 ml UNSCH PRN IV FLUSH 05/07/17 17:00 (NS Flush) 2 ml BID IV FLUSH 05/07/17 21:00 05/09/17 09:03 (Tylenol) 650 mg Q4H PRN PO 05/07/17 17:00 (Zofran Inj) 4 mg Q6H PRN IVP 05/07/17 17:00 (Restoril) 15 mg HS PRN PO 05/07/17 17:00 (Narcan Inj) 0.4 mg UNSCH PRN IV PUSH 05/07/17 17:00 ([place]-Colace) 1 tab BID PO 05/07/17 21:00 05/08/17 20:23 (Milk Of Magnesia Liq) 30 ml Q12H PRN PO 05/07/17 17:00 (Senokot) 17.2 mg Q12H PRN PO 05/07/17 17:00 (Dulcolax Supp) 10 mg DAILY PRN RECTAL 05/07/17 17:00 (Lactulose Liq) 30 ml DAILY PRN PO 05/07/17 17:00 (Heparin Inj) 5,000 units Q12HR SQ 05/07/17 21:00 05/08/17 20:29 (Zyloprim) 100 mg DAILY PO 05/08/17 09:00 05/09/17 10:00 (Phoslo) 2,668 mg TIDAC PO 05/07/17 17:00 05/07/17 23:03 (Lidoderm 5% Patch.12 Hr) 1 patch DAILY T-DERMAL 05/08/17 09:00 05/09/17 09:04 (Ativan) 1 mg Q8H PRN PO 05/07/17 17:15 05/07/17 20:24 (Lopressor) 12.5 mg Q12HR PO 05/07/17 21:00 05/08/17 20:24 (Proamatine) 5 mg TID@07,12,17 PO 05/07/17 17:14 05/09/17 09:57 (Creon 12-38-60) 1 cap BIDAC PO 05/08/17 07:00 05/09/17 10:25 (Protonix) 40 mg DAILY PO 05/08/17 09:00 05/09/17 09:56 (Renvela) 800 mg TIDAC PO 05/07/17 17:00 05/09/17 10:24 (Sensipar) 90 mg BIDPC PO 05/07/17 18:00 Future Hold 05/09/17 10:27 (Dilaudid) 2 mg Q4H PRN PO 05/07/17 17:15 05/09/17 11:07 (Dilaudid Pf Inj) 1 mg Q4H PRN IV 05/07/17 17:15 Miscellaneous Information 1 HS T-DERMAL 05/07/17 21:00 05/08/17 10:23 (Cardura) 8 mg DAILY PO 05/09/17 09:00 Sodium Chloride 1,000 ml @ 0 mls/hr Q0M PRN OTHER 05/08/17 15:13 (Heparin Inj) 8,000 units UNSCH PRN IV FLUSH 05/08/17 15:15 Sodium Chloride 1,000 ml @ 200 mls/hr Q5H PRN IV 05/08/17 15:13 Sodium Chloride 1,000 ml @ 0 mls/hr Q0M PRN OTHER 05/08/17 15:13 (Mannitol Inj) 12.5 gm UNSCH PRN IV 05/08/17 15:15 Albumin Human 100 ml @ 60 mls/hr UNSCH PRN IV 05/08/17 15:15 (NS Flush) 5 ml UNSCH PRN IV FLUSH 05/08/17 15:15 (Heparin Inj) UNSCH PRN .XX 05/08/17 15:15 (Gentamicin Inj) 20 mg UNSCH PRN OTHER 05/08/17 15:15 (Zofran Inj) 4 mg UNSCH PRN IV PUSH 05/08/17 15:15 (Tylenol) 650 mg UNSCH PRN PO 05/08/17 15:15 (Benadryl) 25 mg UNSCH PRN PO 05/08/17 15:15 (Nitrostat Sl) 0.4 mg UNSCH PRN SL 05/08/17 15:15 (Catapres) 0.1 mg UNSCH PRN PO 05/08/17 15:15 (Epogen Inj) 10,000 units UNSCH PRN IV PUSH 05/08/17 15:15 (Gelfoam 12 Mm/7 Mm Top) 1 foam UNSCH PRN TOP 05/08/17 15:15 Iron Sucrose 200 mg/Sodium Chloride 110 ml @ 110 mls/hr WITH DIALYSIS IV 05/09/17 12:00 05/11/17 12:59 A/P Assessment and Plan 41-year-old male past medical history significant for HTN, ESRD on HD, DM II, stent placement, and SVT. Recently admitted to [facility] on 04/28/17 following a fall sustained who sustained left humeral and right patella fractures both nonoperable. Patient was admitted to [facility], however developed A. fib with RVR and needed to be transferred to inpatient side for cardiology evaluation and possible procedure. A. fib with RVR - Patient with history of SVT. Previously scheduled for cardiac procedure by on date of admission to [facility]. - EKG done while at [facility] reviewed, heart rate 114 showing A. fib with RVR. - Placed consul to 's, spoke to who is covering, discussed patient with him. Appreciate recommendations. - Admitted to tele floor for close monitoring - Continue metoprolol 12.5 mg by mouth twice a day for rate control. Hx HTN now with hypotension - Continue metoprolol due to new onset of A. fib - discontinued Doxazosin. ESRD on HD - Patient with a history of failed kidney transplant on hemodialysis Tuesday / Tuesday/Tuesday - Completes dialysis at [facility] in [place] under the care of - Continue HD M/W/F nephrology consulted. recommended to check PO4, resumed Sensipar Left humeral fracture Right tibial plateau fracture - Patient was seen and evaluated by orthopedic services while at [facility]. Recommendations were made for left humeral fracture to be placed in a shoulder immobilizer, nonweightbearing, conservative treatment with follow-up in 2 weeks as outpatient. - Right tibial plateau fracture conservative treatment recommendation with knee immobilizer, strict nonweightbearing, follow-up as outpatient in 2 weeks. - Rehabilitation efforts by primary team - Pain control with by mouth Dilaudid, IV Dilaudid for breakthrough pain. Continue close monitoring for oversedation. DM II -Hemoglobin A1c checked when patient was in [facility], 4.2. No longer diabetic. Anemia Pica - Secondary to renal disease, patient received iron sucrose on 05/09 with dialysis treatment. Epo and Venofer by Nephrology DVT prophylaxis - Heparin subcutaneous Discussed Condition With patient and nurse. No changes to anterior assessment. Discharge Planning Once cleared by renewals specialist. Ang Hunt MD May 09, 2017 14:23
[2017-05-09 14:28] LABS: IRON (FE) 62 MCG/DL (65-175); PHOSPHORUS 4.9 MG/DL (2.5-4.9)
[2017-05-09 14:31] LABS: % SATURATION IRON PROFILE 24.9 % (20-50); FERRITIN 589 NG/ML (26-388); TOTAL IRON BINDING CAPACITY 249 MCG/DL (250-450)
[2017-05-09] MEDS: EPOETIN ALFA 10,000 UNITS/ML VIAL IV PUSH PRN (17:43)
[2017-05-09] MEDS: METOPROLOL TARTRATE 25 MG TAB PO SCH ×2 (18:27→22:28)
[2017-05-09] MEDS: DOXAZOSIN MESYLATE 4 MG TAB PO SCH (18:29)
[2017-05-09] MEDS: REMOVE OLD PATCH T-DERMAL SCH (21:00)
[2017-05-10] VITALS (11 sets, daily range): BP systolic 90–108; BP diastolic 57–68; PULSE 75–89; RESP 18–20; TEMP 97.3–98.4; O2SAT 94–100
[2017-05-10] MEDS: LIPASE/PROTEASE/AMYLASE (12,000/38,000/60,000) CAP PO SCH ×2 (05:58→17:09)
[2017-05-10] MEDS: MIDODRINE 5 MG TAB PO SCH ×3 (05:58→17:09)
[2017-05-10] MEDS: CALCIUM ACETATE 667 MG CAP PO SCH ×3 (08:00→17:00)
[2017-05-10] MEDS: LIDOCAINE HCL 5% PATCH T-DERMAL SCH (08:07)
[2017-05-10] MEDS: SODIUM CHLORIDE 0.9% FLUSH 10 ML FLUSH IV FLUSH SCH ×2 (08:07→20:21)
[2017-05-10] MEDS: PANTOPRAZOLE SOD 40 MG DELAYED RELEASE TAB PO SCH (08:08)
[2017-05-10] MEDS: DOCUSATE SODIUM 50 MG/SENNA 8.6 MG TAB PO SCH ×2 (08:08→20:20)
[2017-05-10] MEDS: HEPARIN SODIUM - SQ 10,000 UNITS/ML VIAL SQ SCH ×2 (08:08→20:20)
[2017-05-10] MEDS: METOPROLOL TARTRATE 25 MG TAB PO SCH ×2 (08:08→20:20)
[2017-05-10] MEDS: DOXAZOSIN MESYLATE 4 MG TAB PO SCH (08:08)
[2017-05-10] MEDS: SEVELAMER CARBONATE 800 MG TAB PO SCH ×3 (08:09→17:08)
[2017-05-10] MEDS: ALLOPURINOL 100 MG TAB PO SCH (08:09)
[2017-05-10] MEDS: HYDROmorphone HCL 2 MG TAB PO PRN ×2 (08:20→13:52)
--- NOTE | 2017-05-10 09:11 | HHI.PR ---
Subjective Remarks This is a pleasant 51 y/o Female with Hypertension, ESRD on HD, DM, Stent placement, SVT and Atrial fibrillation with RVR, initially at [facility] admitted 04/28/17 secondary to Fall at home with secondary left Humeral fracture and right tibial plateau fracture, seen by Orthopedic surgery and did not recommend surgical procedure, was Discharged from [place] on 05/03/17 and admitted to [place] inpatient rehabilitation. While patient was in [facility] developed A. fib with RVR along with hypotension. Cardiology services were consulted however his head cleaning porter was unable to see him while he was in the outpatient setting. Of note patient was scheduled for cardiac procedure on 05/03 which she was unable to attend due to fractures and transferred to [facility]. While in rehabilitation center he was started on beta coretta which was unable to be administered due to symptomatic hypotension. He was discharged from [facility] rehabilitation and placed on inpatient status for cardiology to evaluate for possible intervention. He was seen while still in [facility] this morning he is awake, alert , and oriented in no acute distress or pain. He does endorse lightheadedness, SOB along with feeling heart palpitations. He denies any headache, nausea, fevers, chills, chest pains. Discussed with Dr. Dr Granado rehab physician, patient and the physician covering for . Patient will be transferred to telemetry floor once bed becomes available. Patient was made aware of plan and is agreeable. Consults placed for Cardiology, Nephrology and Import Customer Service Manager and was transferred to the Floor. 05/08: Seen in his bedroom, discussed with nurse, as per fiscal specialist to continue medicines, Decreased Doxazosin, awaiting Primary fiscal specialist doctor Ken for further management. 05/09: Stable in his room, discussed with nurse, no new issues, no nausea, vomit or diarrhea, awaiting final by fiscal specialist. 05/10: Seen in his bedroom, discussed with nurse Miss Medina he is awaiting for fiscal specialist consult by doctor Ken, no nausea, vomit or diarrhea. Objective Vital Signs Date Time Temp Pulse Resp B/P (MAP) Pulse Ox O2 Delivery O2 Flow Rate FiO2 05/10/17 08:55 97.7 77 20 104/68 (80) 95 05/10/17 08:45 97.7 77 20 104/68 (80) 95 05/10/17 04:04 87 05/10/17 04:00 98.0 83 18 98/66 (77) 99 05/10/17 00:00 98.1 85 18 94/63 (73) 99 05/10/17 00:00 78 05/09/17 20:00 Room Air 05/09/17 20:00 83 05/09/17 20:00 97.8 85 18 110/63 (79) 94 05/09/17 18:19 97.3 95 20 106/74 (85) 100 05/09/17 12:32 97.0 81 20 114/68 (83) 99 05/09/17 12:00 96 05/09/17 09:55 99 21 I/O 05/09/17 05/09/17 05/09/17 05/10/17 05/10/17 05/10/17 07:00 15:00 23:00 07:00 15:00 23:00 Output Total 3500 ml Balance -3500 ml Hemodialysis 3500 ml # Voids 2 # Bowel Movements 2 1 Result Diagram: 05/08/17 1314 05/08/17 1314 Imaging No new Imaging studies. Procedures None Other Results Laboratory Tests Test 05/08/17 13:14 05/09/17 13:08 White Blood Count 4.4 TH/MM3 Red Blood Count 2.58 MIL/MM3 Hemoglobin 8.8 GM/DL Hematocrit 26.1 % Mean Corpuscular Volume 101.2 FL Mean Corpuscular Hemoglobin 34.3 PG Mean Corpuscular Hemoglobin Concent 33.9 % Red Cell Distribution Width 15.2 % Platelet Count 112 TH/MM3 Mean Platelet Volume 8.4 FL Neutrophils (%) (Auto) 72.4 % Lymphocytes (%) (Auto) 15.7 % Monocytes (%) (Auto) 8.4 % Eosinophils (%) (Auto) 2.8 % Basophils (%) (Auto) 0.7 % Neutrophils # (Auto) 3.2 TH/MM3 Lymphocytes # (Auto) 0.7 TH/MM3 Monocytes # (Auto) 0.4 TH/MM3 Eosinophils # (Auto) 0.1 TH/MM3 Basophils # (Auto) 0.0 TH/MM3 CBC Comment DIFF FINAL Differential Comment Blood Urea Nitrogen 62 MG/DL Creatinine 13.37 MG/DL Random Glucose 107 MG/DL Calcium Level 8.6 MG/DL Sodium Level 135 MEQ/L Potassium Level 3.7 MEQ/L Chloride Level 94 MEQ/L Carbon Dioxide Level 30.5 MEQ/L Anion Gap 11 MEQ/L Estimat Glomerular Filtration Rate 5 ML/MIN Phosphorus Level 4.9 MG/DL Iron Level 62 MCG/DL Total Iron Binding Capacity 249 MCG/DL Percent Iron Saturation 24.9 % Ferritin 589 NG/ML Parathyroid Hormone (Intact) 197.7 PG/ML Objective Remarks GENERAL: Well developed in no acute distress. SKIN: No rashes, ecchymoses or lesions. Cool and dry. HEAD: Atraumatic. Normocephalic. EYES: Pupils equal round and reactive. Extraocular motions intact. No scleral icterus. No injection or drainage. ENT: Nose without bleeding, purulent drainage or septal hematoma. Throat without erythema. Uvula midline. Airway patent. NECK: Trachea midline. No JVD. Supple, nontender. CARDIOVASCULAR: Fast and irregular rate and rhythm without murmurs, gallops, or rubs. Left forearm AV fistula with positive bruit and thrill. RESPIRATORY: Clear to auscultation. Breath sounds equal bilaterally. No wheezes , rales, or rhonchi. GASTROINTESTINAL: Abdomen soft, non-tender, nondistended. No guarding. MUSCULOSKELETAL: Extremities without clubbing or cyanosis. Left arm in sling with visible left elbow edema, right leg immobilizer in place. Capillary refill <3 seconds for left hand right foot toes. NEUROLOGICAL: Awake and alert. No focal deficits. Medications and IVs Current Medications Medications (Trade) Dose Ordered Sig/Derrick Route Start Time Stop Time Status Last Admin (NS Flush) 2 ml UNSCH PRN IV FLUSH 05/07/17 17:00 (NS Flush) 2 ml BID IV FLUSH 05/07/17 21:00 05/10/17 08:07 (Tylenol) 650 mg Q4H PRN PO 05/07/17 17:00 (Zofran Inj) 4 mg Q6H PRN IVP 05/07/17 17:00 (Restoril) 15 mg HS PRN PO 05/07/17 17:00 (Narcan Inj) 0.4 mg UNSCH PRN IV PUSH 05/07/17 17:00 ([place]-Colace) 1 tab BID PO 05/07/17 21:00 05/08/17 20:23 (Milk Of Magnesia Liq) 30 ml Q12H PRN PO 05/07/17 17:00 (Senokot) 17.2 mg Q12H PRN PO 05/07/17 17:00 (Dulcolax Supp) 10 mg DAILY PRN RECTAL 05/07/17 17:00 (Lactulose Liq) 30 ml DAILY PRN PO 05/07/17 17:00 (Heparin Inj) 5,000 units Q12HR SQ 05/07/17 21:00 05/08/17 20:29 (Zyloprim) 100 mg DAILY PO 05/08/17 09:00 05/10/17 08:09 (Phoslo) 2,668 mg TIDAC PO 05/07/17 17:00 05/07/17 23:03 (Lidoderm 5% Patch.12 Hr) 1 patch DAILY T-DERMAL 05/08/17 09:00 05/10/17 08:07 (Ativan) 1 mg Q8H PRN PO 05/07/17 17:15 05/07/17 20:24 (Lopressor) 12.5 mg Q12HR PO 05/07/17 21:00 05/10/17 08:08 (Proamatine) 5 mg TID@07,12,17 PO 05/07/17 17:14 05/10/17 05:58 (Creon 12-38-60) 1 cap BIDAC PO 05/08/17 07:00 05/10/17 05:58 (Protonix) 40 mg DAILY PO 05/08/17 09:00 05/10/17 08:08 (Renvela) 800 mg TIDAC PO 05/07/17 17:00 05/10/17 08:09 (Sensipar) 90 mg BIDPC PO 05/07/17 18:00 Future Hold 05/09/17 10:27 (Dilaudid) 2 mg Q4H PRN PO 05/07/17 17:15 05/10/17 08:20 (Dilaudid Pf Inj) 1 mg Q4H PRN IV 05/07/17 17:15 Miscellaneous Information 1 HS T-DERMAL 05/07/17 21:00 05/09/17 21:00 (Cardura) 8 mg DAILY PO 05/09/17 09:00 05/10/17 08:08 Sodium Chloride 1,000 ml @ 0 mls/hr Q0M PRN OTHER 05/08/17 15:13 (Heparin Inj) 8,000 units UNSCH PRN IV FLUSH 05/08/17 15:15 Sodium Chloride 1,000 ml @ 200 mls/hr Q5H PRN IV 05/08/17 15:13 Sodium Chloride 1,000 ml @ 0 mls/hr Q0M PRN OTHER 05/08/17 15:13 (Mannitol Inj) 12.5 gm UNSCH PRN IV 05/08/17 15:15 Albumin Human 100 ml @ 60 mls/hr UNSCH PRN IV 05/08/17 15:15 (NS Flush) 5 ml UNSCH PRN IV FLUSH 05/08/17 15:15 (Heparin Inj) UNSCH PRN .XX 05/08/17 15:15 (Gentamicin Inj) 20 mg UNSCH PRN OTHER 05/08/17 15:15 (Zofran Inj) 4 mg UNSCH PRN IV PUSH 05/08/17 15:15 (Tylenol) 650 mg UNSCH PRN PO 05/08/17 15:15 (Benadryl) 25 mg UNSCH PRN PO 05/08/17 15:15 (Nitrostat Sl) 0.4 mg UNSCH PRN SL 05/08/17 15:15 (Catapres) 0.1 mg UNSCH PRN PO 05/08/17 15:15 (Epogen Inj) 10,000 units UNSCH PRN IV PUSH 05/08/17 15:15 05/09/17 17:43 (Gelfoam 12 Mm/7 Mm Top) 1 foam UNSCH PRN TOP 05/08/17 15:15 Iron Sucrose 200 mg/Sodium Chloride 110 ml @ 110 mls/hr WITH DIALYSIS IV 05/09/17 12:00 05/11/17 12:59 05/09/17 17:43 A/P Assessment and Plan 41-year-old male past medical history significant for HTN, ESRD on HD, DM II, stent placement, and SVT. Recently admitted to [facility] on 04/28/17 following a fall sustained who sustained left humeral and right patella fractures both nonoperable. Patient was admitted to [facility], however developed A. fib with RVR and needed to be transferred to inpatient side for cardiology evaluation and possible procedure. A. fib with RVR at this time controlled rate. - Patient with history of SVT. Previously scheduled for cardiac procedure by on date of admission to [facility]. - EKG done while at [facility] reviewed, heart rate 114 showing A. fib with RVR. - Discussed with - Continue metoprolol 12.5 mg by mouth twice a day for rate control. Hx HTN now with hypotension - Continue metoprolol due to new onset of A. fib - discontinued Doxazosin. ESRD on HD - Patient with a history of failed kidney transplant on hemodialysis Tuesday / Tuesday/Tuesday - Completes dialysis at [facility] in [place] under the care of - Continue HD M/W/F nephrology consulted. recommended to check PO4, resumed Sensipar Left humeral fracture Right tibial plateau fracture - Left humeral fracture to be placed in a shoulder immobilizer, nonweightbearing, conservative treatment with follow-up in 2 weeks as outpatient. PT following. - Right tibial plateau fracture conservative treatment recommendation with knee immobilizer, strict nonweightbearing, follow-up as outpatient in 2 weeks. - Pain control DM II -Hemoglobin A1c checked when patient was in [facility], 4.2. No longer diabetic. Anemia Pica - Secondary to renal disease, patient received iron sucrose on 05/09 with dialysis treatment. Epo and Venofer by Nephrology DVT prophylaxis - Heparin subcutaneous Discussed Condition With patient and nurse. Discharge Planning Once cleared by fiscal specialist. Ang Hunt MD May 10, 2017 09:11
[2017-05-10 09:39] LABS: HEMATOCRIT 29.1 % (39.0-51.0); HEMOGLOBIN 9.9 GM/DL (13.0-17.0); MEAN CELL VOLUME 100.6 FL (80.0-100.0); MEAN CORPUSCULAR HEMOGLOBIN 34.3 PG (27.0-34.0); MEAN CORPUSCULAR HGB CONC 34.1 % (32.0-36.0); MEAN PLATELET VOLUME 8.7 FL (7.0-11.0); PLATELET COUNT 123 TH/MM3 (150-450); RED BLOOD COUNT 2.89 MIL/MM3 (4.50-5.90); RED CELL DISTRIBUTION WIDTH 15.5 % (11.6-17.2); WHITE BLOOD COUNT 5.4 TH/MM3 (4.0-11.0)
[2017-05-10 10:00] LABS: ALBUMIN 3.8 GM/DL (3.4-5.0); BICARBONATE 29.9 MEQ/L (21.0-32.0); CALCIUM 8.7 MG/DL (8.5-10.1); PHOSPHORUS 3.6 MG/DL (2.5-4.9)
[2017-05-10 10:08] LABS: CREATININE 10.6 MG/DL (0.60-1.30)
[2017-05-10] MEDS: REMOVE OLD PATCH T-DERMAL SCH (20:21)
[2017-05-11] VITALS (7 sets, daily range): BP systolic 88–138; BP diastolic 59–82; PULSE 67–104; RESP 17–20; TEMP 97.2–98.1; O2SAT 96–99
[2017-05-11] MEDS: REMOVE OLD PATCH T-DERMAL SCH ×2 (00:16→21:00)
[2017-05-11] MEDS: HYDROmorphone HCL 2 MG TAB PO PRN ×2 (02:07→20:47)
[2017-05-11] MEDS: MIDODRINE 5 MG TAB PO SCH ×3 (05:40→17:49)
[2017-05-11] MEDS: LIPASE/PROTEASE/AMYLASE (12,000/38,000/60,000) CAP PO SCH ×2 (05:40→17:50)
[2017-05-11] MEDS: CALCIUM ACETATE 667 MG CAP PO SCH ×3 (08:00→17:00)
[2017-05-11] MEDS: LIDOCAINE HCL 5% PATCH T-DERMAL SCH (09:00)
[2017-05-11] MEDS: SODIUM CHLORIDE 0.9% FLUSH 10 ML FLUSH IV FLUSH SCH ×2 (09:00→20:44)
[2017-05-11] MEDS: DOCUSATE SODIUM 50 MG/SENNA 8.6 MG TAB PO SCH ×2 (09:00→20:43)
[2017-05-11] MEDS: METOPROLOL TARTRATE 25 MG TAB PO SCH ×2 (09:00→20:41)
[2017-05-11] MEDS: HEPARIN SODIUM - SQ 10,000 UNITS/ML VIAL SQ SCH ×2 (09:00→20:43)
[2017-05-11] MEDS: DOXAZOSIN MESYLATE 4 MG TAB PO SCH (09:00)
[2017-05-11] MEDS: SEVELAMER CARBONATE 800 MG TAB PO SCH ×3 (09:49→17:51)
[2017-05-11] MEDS: ALLOPURINOL 100 MG TAB PO SCH (09:51)
[2017-05-11] MEDS: PANTOPRAZOLE SOD 40 MG DELAYED RELEASE TAB PO SCH (09:52)
[2017-05-11] MEDS: LIDOCAINE-PRILOCAIN 2.5% CREAM 5 GM TUBE TOPICAL SCH (12:13)
--- NOTE | 2017-05-11 14:52 | HHI.PR ---
Subjective Remarks The patient was seen following dialysis. He was upset that he was on a heart healthy diet. He wanted to know what was going on with the right of way cutter evaluation. He had no other acute complaints. Discussed with nursing. Objective Vitals Vital Signs Date Time Temp Pulse Resp B/P (MAP) Pulse Ox O2 Delivery O2 Flow Rate FiO2 05/11/17 12:00 97.9 86 19 101/59 (73) 98 05/11/17 12:00 81 05/11/17 08:00 97.2 67 18 97/72 (80) 99 05/11/17 08:00 76 05/11/17 04:12 80 05/11/17 04:00 97.7 90 18 110/67 (81) 98 05/11/17 02:00 84 120/72 (88) 05/11/17 00:00 89 05/11/17 00:00 97.7 90 17 88/59 (69) 99 05/10/17 20:00 97.3 89 18 90/60 (70) 96 05/10/17 20:00 97.3 89 18 90/60 (70) 96 05/10/17 20:00 Room Air 05/10/17 16:59 97.8 80 18 108/57 (74) 100 05/10/17 15:08 75 I/O 05/10/17 05/10/17 05/10/17 05/11/17 05/11/17 05/11/17 07:00 15:00 23:00 07:00 15:00 23:00 Intake Total 720 ml 240 ml Balance 720 ml 240 ml Intake Oral 720 ml 240 ml # Voids 2 # Bowel Movements 1 1 Result Diagram: 05/10/17 0800 05/10/17 0800 Objective Remarks GENERAL: Well developed in no acute distress. SKIN: No rashes, ecchymoses or lesions. Cool and dry. HEAD: Atraumatic. Normocephalic. EYES: Pupils equal round and reactive. Extraocular motions intact. No scleral icterus. No injection or drainage. ENT: Nose without bleeding, purulent drainage or septal hematoma. Throat without erythema. Uvula midline. Airway patent. NECK: Trachea midline. No JVD. Supple, nontender. CARDIOVASCULAR: Fast and irregular rate and rhythm without murmurs, gallops, or rubs. Left forearm AV fistula with positive bruit and thrill. RESPIRATORY: Clear to auscultation. Breath sounds equal bilaterally. No wheezes , rales, or rhonchi. GASTROINTESTINAL: Abdomen soft, non-tender, nondistended. No guarding. MUSCULOSKELETAL: Extremities without clubbing or cyanosis. Left arm in sling with visible left elbow edema, right leg immobilizer in place. Capillary refill <3 seconds for left hand right foot toes. NEUROLOGICAL: Awake and alert. No focal deficits. Medications and IVs Current Medications Medications (Trade) Dose Ordered Sig/Derrick Route Start Time Stop Time Status Last Admin (NS Flush) 2 ml UNSCH PRN IV FLUSH 05/07/17 17:00 (NS Flush) 2 ml BID IV FLUSH 05/07/17 21:00 05/11/17 09:00 (Tylenol) 650 mg Q4H PRN PO 05/07/17 17:00 (Zofran Inj) 4 mg Q6H PRN IVP 05/07/17 17:00 (Restoril) 15 mg HS PRN PO 05/07/17 17:00 (Narcan Inj) 0.4 mg UNSCH PRN IV PUSH 05/07/17 17:00 ([place]ia-Colace) 1 tab BID PO 05/07/17 21:00 05/08/17 20:23 (Milk Of Magnesia Liq) 30 ml Q12H PRN PO 05/07/17 17:00 (Senokot) 17.2 mg Q12H PRN PO 05/07/17 17:00 (Dulcolax Supp) 10 mg DAILY PRN RECTAL 05/07/17 17:00 (Lactulose Liq) 30 ml DAILY PRN PO 05/07/17 17:00 (Heparin Inj) 5,000 units Q12HR SQ 05/07/17 21:00 05/08/17 20:29 (Zyloprim) 100 mg DAILY PO 05/08/17 09:00 05/11/17 09:51 (Phoslo) 2,668 mg TIDAC PO 05/07/17 17:00 05/07/17 23:03 (Lidoderm 5% Patch.12 Hr) 1 patch DAILY T-DERMAL 05/08/17 09:00 05/10/17 08:07 (Ativan) 1 mg Q8H PRN PO 05/07/17 17:15 05/07/17 20:24 (Lopressor) 12.5 mg Q12HR PO 05/07/17 21:00 05/10/17 08:08 (Proamatine) 5 mg TID@07,12,17 PO 05/07/17 17:14 05/10/17 17:09 (Creon 12-38-60) 1 cap BIDAC PO 05/08/17 07:00 05/10/17 17:09 (Protonix) 40 mg DAILY PO 05/08/17 09:00 05/11/17 09:52 (Renvela) 800 mg TIDAC PO 05/07/17 17:00 05/11/17 09:49 (Sensipar) 90 mg BIDPC PO 05/07/17 18:00 Future Hold 05/09/17 10:27 (Dilaudid) 2 mg Q4H PRN PO 05/07/17 17:15 05/11/17 02:07 (Dilaudid Pf Inj) 1 mg Q4H PRN IV 05/07/17 17:15 Miscellaneous Information 1 HS T-DERMAL 05/07/17 21:00 05/11/17 00:16 (Cardura) 8 mg DAILY PO 05/09/17 09:00 05/10/17 08:08 Sodium Chloride 1,000 ml @ 0 mls/hr Q0M PRN OTHER 05/08/17 15:13 (Heparin Inj) 8,000 units UNSCH PRN IV FLUSH 05/08/17 15:15 Sodium Chloride 1,000 ml @ 200 mls/hr Q5H PRN IV 05/08/17 15:13 Sodium Chloride 1,000 ml @ 0 mls/hr Q0M PRN OTHER 05/08/17 15:13 (Mannitol Inj) 12.5 gm UNSCH PRN IV 05/08/17 15:15 Albumin Human 100 ml @ 60 mls/hr UNSCH PRN IV 05/08/17 15:15 (NS Flush) 5 ml UNSCH PRN IV FLUSH 05/08/17 15:15 (Heparin Inj) UNSCH PRN .XX 05/08/17 15:15 (Gentamicin Inj) 20 mg UNSCH PRN OTHER 05/08/17 15:15 (Zofran Inj) 4 mg UNSCH PRN IV PUSH 1/28/18 15:15 (Tylenol) 650 mg UNSCH PRN PO 05/08/17 15:15 (Benadryl) 25 mg UNSCH PRN PO 05/08/17 15:15 (Nitrostat Sl) 0.4 mg UNSCH PRN SL 05/08/17 15:15 (Catapres) 0.1 mg UNSCH PRN PO 05/08/17 15:15 (Epogen Inj) 10,000 units UNSCH PRN IV PUSH 05/08/17 15:15 05/09/17 17:43 (Gelfoam 12 Mm/7 Mm Top) 1 foam UNSCH PRN TOP 05/08/17 15:15 (Emla Cream) 1 applic WITH DIALYSIS TOPICAL 05/10/17 18:00 05/11/17 12:13 A/P Problem List: (1) Atrial fibrillation with RVR ICD Code: I48.91 - Unspecified atrial fibrillation (2) Hypertension ICD Code: I10 - Essential (primary) hypertension Status: Chronic (3) End stage renal disease on dialysis ICD Code: N18.6 - End stage renal disease; Z99.2 - Dependence on renal dialysis Status: Chronic (4) Closed fracture of right patella ICD Code: S82.001A - Unspecified fracture of right patella, initial encounter for closed fracture Status: Acute (5) Closed left humeral fracture ICD Code: S42.302A - Unspecified fracture of shaft of humerus, left arm, initial encounter for closed fracture Status: Acute Assessment and Plan 41-year-old male past medical history significant for HTN, ESRD on HD, DM II, stent placement, and SVT. Recently admitted to [facility] on 04/28/17 following a fall sustained who sustained left humeral and right patella fractures both nonoperable. Patient was admitted to [facility], however developed A. fib with RVR and needed to be transferred to inpatient side for cardiology evaluation and possible procedure. A. fib with RVR at this time controlled rate. - Patient with history of SVT. Previously scheduled for cardiac procedure by on date of admission to [facility]. - EKG done while at [facility] reviewed, heart rate 114 showing A. fib with RVR. - Will discuss with cardiology in the morning - Continue rate control. Hx HTN now with hypotension - Continue metoprolol due to new onset of A. fib - discontinued Doxazosin. ESRD on HD - Patient with a history of failed kidney transplant on hemodialysis Tuesday / Tuesday/Tuesday - Completes dialysis at [facility] in [place] under the care of - Continue HD M/W/F nephrology consulted. recommended to check PO4, resumed Sensipar Left humeral fracture Right tibial plateau fracture - Left humeral fracture to be placed in a shoulder immobilizer, nonweightbearing, conservative treatment with follow-up in 2 weeks as outpatient. PT following. - Right tibial plateau fracture conservative treatment recommendation with knee immobilizer, strict nonweightbearing, follow-up as outpatient in 2 weeks. - Pain control. DM II -Hemoglobin A1c checked when patient was in [facility], 4.2. Anemia Pica - Secondary to renal disease, patient received iron sucrose on 05/09 with dialysis treatment. Epo and Venofer by Nephrology DVT prophylaxis - Heparin subcutaneous Discharge Planning Awaiting cardiology clearance Eulogio Sunshine DO May 11, 2017 14:51
--- NOTE | 2017-05-11 17:43 | HHI.NPPN ---
Subjective History of Present Illness The patient is a 41 yo AA male who is seen at [facility] for management of his dialysis. His outpatient facility is [facility] in [place] with Dr. Vega. He was sent here for rehab from [facility] after he sustained a right tibial fracture and left humeral fracture after fall at home on 04/28/17. He states his typical dialysis is MWF and last outpatient dialysis was 04/27/17. Reports he did not have dialysis during hospitalization in [place] until for short session. Has been on dialysis for 17 years minus 5 years from [id number] after he received a kidney transplant, but unfortunately failed and has been on HD again since 2007. He dialyzes via L forearm AVF on MWF for 5.5h treatments. Was seen initially in [place], but seen on medical floor today as he was transferred d/t A [facility]. Interval History The patient was seen postdialysis today. Only verbal complaint was that he was not happy with his diet. Apparently on cardiac healthy diet. Objective Data Data 05/11/17 05/12/17 19:00 07:00 Output Total 3500 ml Balance -3500 ml Hemodialysis 3500 ml Vital Signs Date Time Temp Pulse Resp B/P (MAP) Pulse Ox O2 Delivery O2 Flow Rate FiO2 05/11/17 12:00 97.9 86 19 101/59 (73) 98 05/11/17 12:00 81 05/11/17 08:00 97.2 67 18 97/72 (80) 99 05/11/17 08:00 76 05/11/17 07:00 Room Air 05/11/17 04:12 80 05/11/17 04:00 97.7 90 18 110/67 (81) 98 05/11/17 02:00 84 120/72 (88) 05/11/17 00:00 89 05/11/17 00:00 97.7 90 17 88/59 (69) 99 05/10/17 20:00 97.3 89 18 90/60 (70) 96 05/10/17 20:00 97.3 89 18 90/60 (70) 96 05/10/17 20:00 Room Air -: 05/10/17 0800 05/10/17 0800 Physical Exam General Appearance: No Acute Distress, Comfortable, Obese Eyes Eye Exam: Sclera White Pulmonary Resp Exam: Clear Bilaterally, Breath Sounds Equal, No Distress Cardiology CV Exam: Regular, Normal Sinus Rhythm, Good Perfusion Gastrointestinal/Abdomen GI Exam: Soft, Non-Tender Integumentary Skin Exam: Clear, Warm, Dry Extremeties Extremities Exam: No Edema Neurologic Neuro Exam: Alert, Awake, Moving All Extremities Psychiatric Psych Exam: Appropriate Responses Assessment/Plan Discussed Condition With: Patient Problem List: (1) End stage renal disease on dialysis ICD Codes: N18.6 - End stage renal disease; Z99.2 - Dependence on renal dialysis Status: Chronic Plan: To continue HD MWF as per outpatient schedule. Patient to return to his previous dialysis center and [facility] post discharge. Check PO4 and albumin. Sensipar was on hold at [place] given hypocalcemia. Will resume if needed. Medications should be adjusted for the patient's ESRD. Avoid gadolinium. (2) Atrial fibrillation with RVR ICD Codes: I48.91 - Unspecified atrial fibrillation Plan: Management as per cardiology. Apparently was being considered for ablation. Mention of decrease or stopping Doxazosin. OK from renal standpoint if cardiology still wishes to do this. (3) Hypertension ICD Codes: I10 - Essential (primary) hypertension Status: Chronic Plan: By hx, but hypotensive in house. Midodrine if needed with HD (4) Anemia ICD Codes: D64.9 - Anemia, unspecified Status: Chronic Plan: Epo and Venofer with HD (5) Pica in adults ICD Codes: F50.89 - Other specified eating disorder Plan: Will replete iron and electrolytes. May need psych consultation in the future. Joanne Peters MD May 11, 2017 17:43
[2017-05-12] VITALS (8 sets, daily range): BP systolic 92–127; BP diastolic 51–78; PULSE 77–91; RESP 18–20; TEMP 97.8–98.4; O2SAT 96–98
[2017-05-12] MEDS: HYDROmorphone HCL 2 MG TAB PO PRN (03:22)
[2017-05-12] MEDS: LIPASE/PROTEASE/AMYLASE (12,000/38,000/60,000) CAP PO SCH ×2 (06:11→17:34)
[2017-05-12] MEDS: MIDODRINE 5 MG TAB PO SCH ×3 (06:11→17:35)
[2017-05-12] MEDS: CALCIUM ACETATE 667 MG CAP PO SCH ×3 (08:00→17:38)
[2017-05-12] MEDS: SODIUM CHLORIDE 0.9% FLUSH 10 ML FLUSH IV FLUSH SCH ×2 (09:00→20:30)
[2017-05-12] MEDS: DOCUSATE SODIUM 50 MG/SENNA 8.6 MG TAB PO SCH ×2 (09:00→20:30)
[2017-05-12] MEDS: LIDOCAINE HCL 5% PATCH T-DERMAL SCH (09:00)
[2017-05-12] MEDS: HEPARIN SODIUM - SQ 10,000 UNITS/ML VIAL SQ SCH ×2 (09:00→20:29)
[2017-05-12 09:25] LABS: HEMATOCRIT 31.2 % (39.0-51.0); HEMOGLOBIN 10.4 GM/DL (13.0-17.0); MEAN CELL VOLUME 99.9 FL (80.0-100.0); MEAN CORPUSCULAR HEMOGLOBIN 33.2 PG (27.0-34.0); MEAN CORPUSCULAR HGB CONC 33.3 % (32.0-36.0); MEAN PLATELET VOLUME 8.5 FL (7.0-11.0); PLATELET COUNT 113 TH/MM3 (150-450); RED BLOOD COUNT 3.13 MIL/MM3 (4.50-5.90); WHITE BLOOD COUNT 4.9 TH/MM3 (4.0-11.0)
[2017-05-12] MEDS: SEVELAMER CARBONATE 800 MG TAB PO SCH ×3 (09:35→17:34)
[2017-05-12] MEDS: PANTOPRAZOLE SOD 40 MG DELAYED RELEASE TAB PO SCH (09:36)
[2017-05-12] MEDS: DOXAZOSIN MESYLATE 4 MG TAB PO SCH (09:36)
[2017-05-12] MEDS: METOPROLOL TARTRATE 25 MG TAB PO SCH ×2 (09:37→20:27)
[2017-05-12] MEDS: ALLOPURINOL 100 MG TAB PO SCH (09:38)
[2017-05-12 09:41] LABS: CALCIUM 9.7 MG/DL (8.5-10.1); MAGNESIUM 2.6 MG/DL (1.5-2.5)
[2017-05-12 09:53] LABS: CREATININE 10.27 MG/DL (0.60-1.30)
--- NOTE | 2017-05-12 16:31 | HHI.PR ---
Subjective Remarks The patient was resting comfortably. He was anxious to hear if he would have the procedure done seen. He said that when he goes to rehabilitation and starts exercising his heart gets out of control. He also says that dialysis also causes his heart to work harder. No acute complaints at this time. He says Ativan helps control his anxiety. Objective Vitals Vital Signs Date Time Temp Pulse Resp B/P (MAP) Pulse Ox O2 Delivery O2 Flow Rate FiO2 05/12/17 15:58 98.4 91 18 113/67 (82) 98 05/12/17 12:00 98.3 80 18 92/56 (68) 98 105/51 (69) 05/12/17 08:00 98.1 86 18 107/68 (81) 96 05/12/17 08:00 83 05/12/17 07:00 Room Air 05/12/17 04:00 83 05/12/17 04:00 Room Air 21 05/12/17 04:00 97.8 84 20 120/78 (92) 97 05/12/17 00:00 88 05/12/17 00:00 Room Air 21 05/11/17 20:00 Room Air 21 05/11/17 20:00 98.1 104 20 138/82 (100) 96 05/11/17 20:00 98 I/O 05/11/17 05/11/17 05/11/17 05/12/17 05/12/17 05/12/17 07:00 15:00 23:00 07:00 15:00 23:00 Intake Total 240 ml Output Total 3500 ml 600 ml Balance 240 ml -3500 ml -600 ml Intake Oral 240 ml Output Urine Total 600 ml Hemodialysis 3500 ml # Voids 2 # Bowel Movements 1 1 Result Diagram: 05/12/1781605/12/1717 Objective Remarks GENERAL: Well developed in no acute distress. SKIN: No rashes, ecchymoses or lesions. Cool and dry. HEAD: Atraumatic. Normocephalic. EYES: Pupils equal round and reactive. Extraocular motions intact. No scleral icterus. No injection or drainage. ENT: Nose without bleeding, purulent drainage or septal hematoma. Throat without erythema. Uvula midline. Airway patent. NECK: Trachea midline. No JVD. Supple, nontender. CARDIOVASCULAR: Irregularly irregular rhythm without murmurs, gallops, or rubs. Left forearm AV fistula with positive bruit and thrill. RESPIRATORY: Clear to auscultation. Breath sounds equal bilaterally. No wheezes , rales, or rhonchi. GASTROINTESTINAL: Abdomen soft, non-tender, nondistended. No guarding. MUSCULOSKELETAL: Extremities without clubbing or cyanosis. Left arm in sling with visible left elbow edema, right leg immobilizer in place. Capillary refill <3 seconds for left hand right foot toes. NEUROLOGICAL: Awake and alert. No focal deficits. Medications and IVs Current Medications Medications (Trade) Dose Ordered Sig/Derrick Route Start Time Stop Time Status Last Admin (NS Flush) 2 ml UNSCH PRN IV FLUSH 05/07/17 17:00 (NS Flush) 2 ml BID IV FLUSH 05/07/17 21:00 05/12/17 09:00 (Tylenol) 650 mg Q4H PRN PO 05/07/17 17:00 (Zofran Inj) 4 mg Q6H PRN IVP 05/07/17 17:00 (Restoril) 15 mg HS PRN PO 05/07/17 17:00 (Narcan Inj) 0.4 mg UNSCH PRN IV PUSH 05/07/17 17:00 (Virginia-Colace) 1 tab BID PO 05/07/17 21:00 05/08/17 20:23 (Milk Of Magnesia Liq) 30 ml Q12H PRN PO 05/07/17 17:00 (Senokot) 17.2 mg Q12H PRN PO 05/07/17 17:00 (Dulcolax Supp) 10 mg DAILY PRN RECTAL 05/07/17 17:00 (Lactulose Liq) 30 ml DAILY PRN PO 05/07/17 17:00 (Heparin Inj) 5,000 units Q12HR SQ 05/07/17 21:00 05/11/17 20:43 (Zyloprim) 100 mg DAILY PO 05/08/17 09:00 05/12/17 09:38 (Phoslo) 2,668 mg TIDAC PO 05/07/17 17:00 05/07/17 23:03 (Lidoderm 5% Patch.12 Hr) 1 patch DAILY T-DERMAL 05/08/17 09:00 05/12/17 09:00 (Ativan) 1 mg Q8H PRN PO 05/07/17 17:15 05/07/17 20:24 (Lopressor) 12.5 mg Q12HR PO 05/07/17 21:00 05/12/17 09:37 (Proamatine) 5 mg TID@07,12,17 PO 05/07/17 17:14 05/12/17 12:14 (Creon 12-38-60) 1 cap BIDAC PO 05/08/17 07:00 05/11/17 17:50 (Protonix) 40 mg DAILY PO 05/08/17 09:00 05/12/17 09:36 (Renvela) 800 mg TIDAC PO 05/07/17 17:00 05/12/17 12:13 (Sensipar) 90 mg BIDPC PO 05/07/17 18:00 Future Hold 05/09/17 10:27 (Dilaudid) 2 mg Q4H PRN PO 05/07/17 17:15 05/12/17 03:22 (Dilaudid Pf Inj) 1 mg Q4H PRN IV 05/07/17 17:15 Miscellaneous Information 1 HS T-DERMAL 05/07/17 21:00 05/11/17 00:16 (Cardura) 8 mg DAILY PO 05/09/17 09:00 05/12/17 09:36 Sodium Chloride 1,000 ml @ 0 mls/hr Q0M PRN OTHER 05/08/17 15:13 (Heparin Inj) 8,000 units UNSCH PRN IV FLUSH 05/08/17 15:15 Sodium Chloride 1,000 ml @ 200 mls/hr Q5H PRN IV 05/08/17 15:13 Sodium Chloride 1,000 ml @ 0 mls/hr Q0M PRN OTHER 05/08/17 15:13 (Mannitol Inj) 12.5 gm UNSCH PRN IV 05/08/17 15:15 Albumin Human 100 ml @ 60 mls/hr UNSCH PRN IV 05/08/17 15:15 (NS Flush) 5 ml UNSCH PRN IV FLUSH 05/08/17 15:15 (Heparin Inj) UNSCH PRN .XX 05/08/17 15:15 (Gentamicin Inj) 20 mg UNSCH PRN OTHER 05/08/17 15:15 (Zofran Inj) 4 mg UNSCH PRN IV PUSH 05/08/17 15:15 (Tylenol) 650 mg UNSCH PRN PO 05/08/17 15:15 (Benadryl) 25 mg UNSCH PRN PO 05/08/17 15:15 (Nitrostat Sl) 0.4 mg UNSCH PRN SL 05/08/17 15:15 (Catapres) 0.1 mg UNSCH PRN PO 05/08/17 15:15 (Epogen Inj) 10,000 units UNSCH PRN IV PUSH 05/08/17 15:15 05/09/17 17:43 (Gelfoam 12 Mm/7 Mm Top) 1 foam UNSCH PRN TOP 05/08/17 15:15 (Emla Cream) 1 applic WITH DIALYSIS TOPICAL 05/10/17 18:00 05/11/17 12:13 A/P Problem List: (1) Atrial fibrillation with RVR ICD Code: I48.91 - Unspecified atrial fibrillation (2) Hypertension ICD Code: I10 - Essential (primary) hypertension Status: Chronic (3) End stage renal disease on dialysis ICD Code: N18.6 - End stage renal disease; Z99.2 - Dependence on renal dialysis Status: Chronic (4) Closed fracture of right patella ICD Code: S82.001A - Unspecified fracture of right patella, initial encounter for closed fracture Status: Acute (5) Closed left humeral fracture ICD Code: S42.302A - Unspecified fracture of shaft of humerus, left arm, initial encounter for closed fracture Status: Acute Assessment and Plan 41-year-old male past medical history significant for HTN, ESRD on HD, DM II, stent placement, and SVT. Recently admitted to [facility] on 04/28/17 following a fall sustained who sustained left humeral and right patella fractures both nonoperable. Patient was admitted to [facility], however developed A. fib with RVR and needed to be transferred to inpatient side for cardiology evaluation and possible procedure. A. fib with RVR at this time controlled rate. - Patient with history of SVT. Previously scheduled for cardiac procedure by on date of admission to [facility]. - EKG done while at [facility] reviewed, heart rate 114 showing A. fib with RVR. - Dr. Cochran still trying to get in touch with Dr. Ken about possible ablation. - Continue rate control. HTN - Continue metoprolol due to new onset of A. fib - discontinued Doxazosin. ESRD on HD - Patient with a history of failed kidney transplant on hemodialysis Tuesday / Tuesday/Tuesday - Completes dialysis at [facility] in [place] under the care of - Continue HD M/W/F nephrology consulted. recommended to check PO4, resumed Sensipar - plans to be on renal transplant list. Left humeral fracture Right tibial plateau fracture - Left humeral fracture to be placed in a shoulder immobilizer, nonweightbearing, conservative treatment with follow-up in 2 weeks as outpatient. PT following. - Right tibial plateau fracture conservative treatment recommendation with knee immobilizer, strict nonweightbearing, follow-up as outpatient in 2 weeks. - Pain control. - d/c back to [facility] when stable. DM II -Hemoglobin A1c checked when patient was in [facility] rehabilitation, 4.2. Anemia Pica - Secondary to renal disease, patient received iron sucrose on 05/09 with dialysis treatment. Epo and Venofer by Nephrology DVT prophylaxis - Heparin subcutaneous Discharge Planning Awaiting cardiology clearance Eulogio Sunshine DO May 12, 2017 16:31
[2017-05-12] MEDS: LORazepam 1 MG TAB PO PRN (20:28)
[2017-05-12] MEDS: REMOVE OLD PATCH T-DERMAL SCH (20:31)
[2017-05-13] VITALS (11 sets, daily range): BP systolic 110–138; BP diastolic 66–96; PULSE 75–101; RESP 18–20; TEMP 97.3–98.6; O2SAT 96–100
[2017-05-13] MEDS: LIPASE/PROTEASE/AMYLASE (12,000/38,000/60,000) CAP PO SCH ×2 (05:39→17:18)
[2017-05-13] MEDS: MIDODRINE 5 MG TAB PO SCH ×4 (05:40→17:18)
[2017-05-13 07:28] LABS: HEMATOCRIT 30.2 % (39.0-51.0); HEMOGLOBIN 10.2 GM/DL (13.0-17.0); MEAN CELL VOLUME 99.5 FL (80.0-100.0); MEAN CORPUSCULAR HEMOGLOBIN 33.7 PG (27.0-34.0); MEAN CORPUSCULAR HGB CONC 33.9 % (32.0-36.0); MEAN PLATELET VOLUME 8.8 FL (7.0-11.0); PLATELET COUNT 109 TH/MM3 (150-450); RED BLOOD COUNT 3.04 MIL/MM3 (4.50-5.90); RED CELL DISTRIBUTION WIDTH 15.2 % (11.6-17.2); WHITE BLOOD COUNT 4.4 TH/MM3 (4.0-11.0)
[2017-05-13] MEDS: CALCIUM ACETATE 667 MG CAP PO SCH ×3 (08:00→17:00)
[2017-05-13] MEDS: SEVELAMER CARBONATE 800 MG TAB PO SCH ×3 (08:00→17:18)
[2017-05-13 08:02] LABS: BICARBONATE 27.7 MEQ/L (21.0-32.0); CALCIUM 9.7 MG/DL (8.5-10.1); MAGNESIUM 2.7 MG/DL (1.5-2.5)
[2017-05-13 08:05] LABS: CREATININE 11.98 MG/DL (0.60-1.30)
[2017-05-13] MEDS: LIDOCAINE HCL 5% PATCH T-DERMAL SCH (08:07)
[2017-05-13] MEDS: SODIUM CHLORIDE 0.9% FLUSH 10 ML FLUSH IV FLUSH SCH ×2 (08:08→21:48)
[2017-05-13] MEDS: DOCUSATE SODIUM 50 MG/SENNA 8.6 MG TAB PO SCH ×2 (08:08→21:00)
[2017-05-13] MEDS: ALLOPURINOL 100 MG TAB PO SCH (08:10)
[2017-05-13] MEDS: PANTOPRAZOLE SOD 40 MG DELAYED RELEASE TAB PO SCH (08:10)
[2017-05-13] MEDS: HEPARIN SODIUM - SQ 10,000 UNITS/ML VIAL SQ SCH ×2 (08:11→21:00)
[2017-05-13] MEDS: HYDROmorphone HCL 2 MG TAB PO PRN ×2 (08:30→21:47)
[2017-05-13] MEDS: METOPROLOL TARTRATE 25 MG TAB PO SCH ×2 (09:00→21:46)
[2017-05-13] MEDS: LIDOCAINE-PRILOCAIN 2.5% CREAM 5 GM TUBE TOPICAL SCH (12:04)
[2017-05-13] MEDS ORDERED: DILA2TAB4 PO (15:12)
[2017-05-13] MEDS ORDERED: LORA1TAB12 PO (15:12)
--- NOTE | 2017-05-13 15:13 | HHI.DCPOC ---
Discharge Care Plan Diagnosis: (1) Anemia (2) Closed left humeral fracture (3) Atrial fibrillation with RVR (4) Closed fracture of right patella (5) End stage renal disease on dialysis (6) Hypertension (7) Anxiety (8) Type 2 diabetes mellitus with complications Goals to Promote Your Health * To prevent worsening of your condition and complications * To maintain your health at the optimal level Directions to Meet Your Goals Take your medications as prescribed Follow your dietary instruction Follow activity as directed Keep your appointments as scheduled Take your immunizations and boosters as scheduled If your symptoms worsen call your PCP, if no PCP go to Urgent Care Center or Emergency Room Smoking is Dangerous to Your Health. Avoid second hand smoke Call the 24-hour hour crisis hotline for domestic abuse at Eulogio Sunshine DO May 13, 2017 15:13
--- NOTE | 2017-05-13 15:23 | HHI.DS ---
Discharge Summary Admission Date May 07, 2017 at 15:32 Discharge Date: May 14, 2017 Admitting Diagnosis (1) Atrial fibrillation with RVR ICD Code: I48.91 - Unspecified atrial fibrillation Diagnosis: Principal (2) Hypertension ICD Code: I10 - Essential (primary) hypertension Status: Chronic (3) End stage renal disease on dialysis ICD Code: N18.6 - End stage renal disease; Z99.2 - Dependence on renal dialysis Diagnosis: Principal Status: Chronic (4) Closed fracture of right patella ICD Code: S82.001A - Unspecified fracture of right patella, initial encounter for closed fracture Status: Acute (5) Closed left humeral fracture ICD Code: S42.302A - Unspecified fracture of shaft of humerus, left arm, initial encounter for closed fracture Status: Acute Procedures None Brief History - From Admission Written by Christopher Gonzalez, acting as scribe for [Cosma] on 05/07/17 at 17:48. 51-year-old male with past medical history significant for HTN, ESRD on HD, DM, stent placement, SVT, and A. fib with RVR. Patient was originally hospitalized at [facility] on 04/28/17 following a fall at home which resulted in left humeral fracture and right tibial plateau fracture. Patient was seen and evaluated by orthopedic services while hospitalized to recommended service treatment with no surgery. Discharged from [facility] on 05/03 and admitted to [facility] rehabilitation. While patient was in [facility] developed A. fib with RVR along with hypotension. Cardiology services were consulted however his rubber boots and shoes repairer was unable to see him while he was in the outpatient setting. Of note patient was scheduled for cardiac procedure on 05/03 which she was unable to attend due to fractures and transferred to [facility]. While in rehabilitation center he was started on beta coretta which was unable to be administered due to symptomatic hypotension. He was discharged from [facility] and placed on inpatient status for cardiology to evaluate for possible intervention. He was seen while still in [facility] this morning he is awake, alert, and oriented in no acute distress or pain. He does endorse lightheadedness, SOB along with feeling heart palpitations. He denies any headache, nausea, fevers, chills, chest pains. Discussed with Dr. Dr Granado rehab physician, patient and the physician covering for . Patient will be transferred to telemetry floor once bed becomes available. Patient was made aware of plan and is agreeable. CBC/BMP: 05/13/17 0601 05/13/17 0601 Significant Findings Laboratory Tests Test 05/11/17 01:55 05/12/17 08:17 05/13/17 06:01 Red Blood Count 3.13 MIL/MM3 (4.50-5.90) 3.04 MIL/MM3 (4.50-5.90) Hemoglobin 10.4 GM/DL (13.0-17.0) 10.2 GM/DL (13.0-17.0) Hematocrit 31.2 % (39.0-51.0) 30.2 % (39.0-51.0) Platelet Count 113 TH/MM3 (150-450) 109 TH/MM3 (150-450) Blood Urea Nitrogen 45 MG/DL (7-18) 61 MG/DL (7-18) Creatinine 10.27 MG/DL (0.60-1.30) 11.98 MG/DL (0.60-1.30) Magnesium Level 2.6 MG/DL (1.5-2.5) 2.7 MG/DL (1.5-2.5) Chloride Level 93 MEQ/L (98-107) 94 MEQ/L (98-107) Estimat Glomerular Filtration Rate 7 ML/MIN (>89) 6 ML/MIN (>89) Sodium Level 135 MEQ/L (136-145) Potassium Level 3.4 MEQ/L (3.5-5.1) PE at Discharge GENERAL: Well developed in no acute distress. SKIN: No rashes, ecchymoses or lesions. Cool and dry. HEAD: Atraumatic. Normocephalic. EYES: Pupils equal round and reactive. Extraocular motions intact. No scleral icterus. No injection or drainage. ENT: Nose without bleeding, purulent drainage or septal hematoma. Throat without erythema. Uvula midline. Airway patent. NECK: Trachea midline. No JVD. Supple, nontender. CARDIOVASCULAR: Irregularly irregular rhythm without murmurs, gallops, or rubs. Left forearm AV fistula with positive bruit and thrill. RESPIRATORY: Clear to auscultation. Breath sounds equal bilaterally. No wheezes , rales, or rhonchi. GASTROINTESTINAL: Abdomen soft, non-tender, nondistended. No guarding. MUSCULOSKELETAL: Extremities without clubbing or cyanosis. Left arm in sling with visible left elbow edema, right leg immobilizer in place. Capillary refill <3 seconds for left hand right foot toes. NEUROLOGICAL: Awake and alert. No focal deficits. Pt update on day of discharge The patient was seen following dialysis. He had no acute complaints. Was anxious to go to rehabilitation. Discussed with nursing. Hospital Course Left humeral fracture/ Right tibial plateau fracture Recently admitted to [facility] on 04/28/17 following a fall and sustained left humeral and right patella fractures, both nonoperable. Patient was admitted to [facility], however developed A. fib with RVR and needed to be transferred to inpatient side for cardiology evaluation and possible ablation. Left humeral fracture to be placed in a shoulder immobilizer , nonweightbearing, conservative treatment with follow-up in 2 weeks as outpatient. Right tibial plateau fracture conservative treatment recommendation with knee immobilizer, strict nonweightbearing, follow-up as outpatient in 2 weeks. He received pain control. He worked with PT/OT. He will be discharged to inpatient rehab. A. fib with RVR Patient with history of SVT. EKG done while at [facility] showing A. fib with RVR. The pt was evaluated by cardiology who cleared the pt for discharge back to rehab. He will continue Lopressor. ESRD on HD Patient with a history of failed kidney transplant on hemodialysis Tuesday/ Tuesday/Tuesday. He had a problem with the dialysis nurse on 05/13/17 and refused dialysis. He resume dialysis on 05/14/17 without incident. He will resume dialysis as scheduled upon discharge to rehabilitation. Nephrology will need to be consulted at that time. Pt Condition on Discharge: Stable Discharge Disposition: Rehab Inpatient Discharge Time: > 30 minutes Discharge Instructions DIET: Follow Instructions for: As Tolerated, No Restrictions Activities you can perform: See Additionl Instruction Follow up Referrals: Nephrology - 05/15/17 PCP Follow-up - 1 Week New Orders: BASIC METABOLIC PROF - 05/15/17 New Medications: Hydromorphone (Dilaudid) 2 Mg Tab 2 MG PO Q4H PRN for PAIN 2-10, #20 TAB Continued Medications: Allopurinol (Allopurinol) 100 Mg Tab 100 MG PO DAILY for Gout, #30 TAB 0 Refills Calcium Acetate (Phosphate Binder) (Calcium Acetate (Phosphate Binder)) 667 Mg Cap 2668 MG PO TID for Hyperphosphatemia, #360 CAP 0 Refills Cinacalcet (Sensipar) 90 Mg Tab 90 MG PO BID, #60 TAB 0 Refills Lidocaine (Lidoderm) 5 % Adh..patch 1 PATCH T-DERMAL DAILY for 30 Days Lorazepam (Lorazepam) 1 Mg Tab 1 MG PO Q8H PRN for ANXIETY, #14 TAB 0 Refills (This prescription has been renewed) Metoprolol Tartrate (Metoprolol Tartrate) 25 Mg Tab 12.5 MG PO Q12HR for 30 Days, TAB Midodrine (Midodrine) 5 Mg Tab 5 MG PO TID@07,12,17 for 30 Days, TAB Oyster Shell (Oyster Calcium) 500 Mg Calcium (1250 Mg) Tab 500 MG PO Q12HR for 30 Days, TAB Pancrelipase (Creon) 12,000-38,000-60,000 Units Cap 1 CAP PO BIDAC for Digestive Aid, #90 CAP 0 Refills Pantoprazole (Pantoprazole) 40 Mg Tab 40 MG PO DAILY for 30 Days, TAB Sevelamer Carbonate (Renvela) 800 Mg Tab 800 MG PO TID for Control phosphorous levels, #90 TAB 0 Refills [Albuterol-Ipratropium Neb] () 1 AMPULE NEBU 1 AMPULE NEB Q8HR NEB for 30 Days [Heparin Inj] () 17718 UNITS/ML INJ 5000 UNITS SQ Q12HR for 30 Days Discontinued Medications: Doxazosin (Doxazosin) 8 Mg Tab 16 MG PO DAILY, #60 TAB 0 Refills Hydromorphone (Hydromorphone) 4 Mg Tab 8 MG PO Q4H PRN for PAIN, TAB 0 Refills Eulogio Sunshine DO May 13, 2017 15:23
--- NOTE | 2017-05-13 16:34 | HHI.NPPN ---
Subjective History of Present Illness The patient is a 41 yo AA male who is seen at [facility] for management of his dialysis. His outpatient facility is [facility] in [place] with Dr. Vega. He was sent here for rehab from [facility] after he sustained a right tibial fracture and left humeral fracture after fall at home on 04/28/17. He states his typical dialysis is MWF and last outpatient dialysis was 04/27/17. Reports he did not have dialysis during hospitalization in [place] until for short session. Has been on dialysis for 17 years minus 5 years from [id number] after he received a kidney transplant, but unfortunately failed and has been on HD again since 2007. He dialyzes via L forearm AVF on MWF for 5.5h treatments. Was seen initially in [place], but seen on medical floor today [facility] Interval History Pt being transferred back to [place] this evening. Refused HD today (Shasta Mujica) Review of Systems General General Remarks Denies any complaints (Shasta Mujica) Objective Data Data Vital Signs Date Time Temp Pulse Resp B/P (MAP) Pulse Ox O2 Delivery O2 Flow Rate FiO2 05/13/17 15:57 98.6 100 18 138/96 (110) 98 05/13/17 12:00 101 05/13/17 12:00 97.3 94 18 115/82 (93) 99 05/13/17 08:47 98.1 89 18 128/81 (97) 98 05/13/17 08:01 80 05/13/17 08:00 Room Air 21 05/13/17 04:04 97.5 90 20 110/66 (81) 96 05/13/17 04:00 Room Air 05/13/17 04:00 85 05/13/17 00:37 97.9 88 20 112/74 (87) 97 05/13/17 00:00 75 05/13/17 00:00 Room Air 05/12/17 21:50 97 05/12/17 20:00 Room Air 21 05/12/17 20:00 98.2 80 18 127/76 (93) 96 (Shasta Mujica) -: 05/13/17 0601 05/13/17 0601 Medication Review Current Medications Medications (Trade) Dose Ordered Sig/Derrick Route Start Time Stop Time Status Last Admin (NS Flush) 2 ml UNSCH PRN IV FLUSH 05/07/17 17:00 (NS Flush) 2 ml BID IV FLUSH 05/07/17 21:00 05/13/17 08:08 (Tylenol) 650 mg Q4H PRN PO 05/07/17 17:00 (Zofran Inj) 4 mg Q6H PRN IVP 05/07/17 17:00 (Restoril) 15 mg HS PRN PO 05/07/17 17:00 (Narcan Inj) 0.4 mg UNSCH PRN IV PUSH 05/07/17 17:00 ([place]ia-Colace) 1 tab BID PO 05/07/17 21:00 05/08/17 20:23 (Milk Of Magnesia Liq) 30 ml Q12H PRN PO 05/07/17 17:00 (Senokot) 17.2 mg Q12H PRN PO 05/07/17 17:00 (Dulcolax Supp) 10 mg DAILY PRN RECTAL 05/07/17 17:00 (Lactulose Liq) 30 ml DAILY PRN PO 05/07/17 17:00 (Heparin Inj) 5,000 units Q12HR SQ 05/07/17 21:00 05/12/17 20:29 (Zyloprim) 100 mg DAILY PO 05/08/17 09:00 05/13/17 08:10 (Phoslo) 2,668 mg TIDAC PO 05/07/17 17:00 05/12/17 17:38 (Lidoderm 5% Patch.12 Hr) 1 patch DAILY T-DERMAL 05/08/17 09:00 05/13/17 08:07 (Ativan) 1 mg Q8H PRN PO 05/07/17 17:15 05/12/17 20:28 (Lopressor) 12.5 mg Q12HR PO 05/07/17 21:00 05/12/17 20:27 (Proamatine) 5 mg TID@07,12,17 PO 05/07/17 17:14 05/13/17 14:44 (Creon 12-38-60) 1 cap BIDAC PO 05/08/17 07:00 05/12/17 17:34 (Protonix) 40 mg DAILY PO 05/08/17 09:00 05/13/17 08:10 (Renvela) 800 mg TIDAC PO 05/07/17 17:00 05/13/17 08:00 (Sensipar) 90 mg BIDPC PO 05/07/17 18:00 Future Hold 05/09/17 10:27 (Dilaudid) 2 mg Q4H PRN PO 05/07/17 17:15 05/13/17 08:30 (Dilaudid Pf Inj) 1 mg Q4H PRN IV 05/07/17 17:15 Miscellaneous Information 1 HS T-DERMAL 05/07/17 21:00 05/12/17 20:31 Sodium Chloride 1,000 ml @ 0 mls/hr Q0M PRN OTHER 05/08/17 15:13 (Heparin Inj) 8,000 units UNSCH PRN IV FLUSH 05/08/17 15:15 Sodium Chloride 1,000 ml @ 200 mls/hr Q5H PRN IV 05/08/17 15:13 Sodium Chloride 1,000 ml @ 0 mls/hr Q0M PRN OTHER 05/08/17 15:13 (Mannitol Inj) 12.5 gm UNSCH PRN IV 05/08/17 15:15 Albumin Human 100 ml @ 60 mls/hr UNSCH PRN IV 05/08/17 15:15 (NS Flush) 5 ml UNSCH PRN IV FLUSH 05/08/17 15:15 (Heparin Inj) UNSCH PRN .XX 05/08/17 15:15 (Gentamicin Inj) 20 mg UNSCH PRN OTHER 05/08/17 15:15 (Zofran Inj) 4 mg UNSCH PRN IV PUSH 05/08/17 15:15 (Tylenol) 650 mg UNSCH PRN PO 05/08/17 15:15 (Benadryl) 25 mg UNSCH PRN PO 05/08/17 15:15 (Nitrostat Sl) 0.4 mg UNSCH PRN SL 05/08/17 15:15 (Catapres) 0.1 mg UNSCH PRN PO 05/08/17 15:15 (Epogen Inj) 10,000 units UNSCH PRN IV PUSH 05/08/17 15:15 05/09/17 17:43 (Gelfoam 12 Mm/7 Mm Top) 1 foam UNSCH PRN TOP 05/08/17 15:15 (Emla Cream) 1 applic WITH DIALYSIS TOPICAL 05/10/17 18:00 05/13/17 12:04 (Shasta Mujica) Physical Exam General Appearance: No Acute Distress, Comfortable, Obese (Shasta Mujica) Eyes Eye Exam: Sclera White (Shasta Mujica) Pulmonary Resp Exam: Clear Bilaterally, Breath Sounds Equal, No Distress (Shasta Mujica) Cardiology CV Exam: Regular, Normal Sinus Rhythm, Good Perfusion (Shasta Mujica) Gastrointestinal/Abdomen GI Exam: Soft, Non-Tender (Shasta Mujica) Integumentary Skin Exam: Clear, Warm, Dry (Shasta Mujica) Extremeties Extremities Exam: No Edema (Shasta Mujica) Neurologic Neuro Exam: Alert, Awake, Moving All Extremities (Shasta Mujica) Psychiatric Psych Exam: Appropriate Responses (Shasta Mujica) Assessment/Plan Discussed Condition With: Patient Problem List: (1) End stage renal disease on dialysis ICD Codes: N18.6 - End stage renal disease; Z99.2 - Dependence on renal dialysis Status: Chronic Plan: Pt refused HD today. Will plan on HD tomorrow. Will order Dialyvite Medications should be adjusted for the patient's ESRD. Avoid gadolinium. (2) Atrial fibrillation with RVR ICD Codes: I48.91 - Unspecified atrial fibrillation Plan: Management as per cardiology. Apparently was being considered for ablation. Mention of decrease or stopping Doxazosin. OK from renal standpoint if cardiology still wishes to do this. (3) Hypertension ICD Codes: I10 - Essential (primary) hypertension Status: Chronic Plan: Midodrine if needed with HD (4) Anemia ICD Codes: D64.9 - Anemia, unspecified Status: Chronic Plan: Epo and Venofer with HD (5) Pica in adults ICD Codes: F50.89 - Other specified eating disorder Plan: Will replete iron and electrolytes. May need psych consultation in the future. (Shasta Mujica) Plan The exam, history, and the medical decision-making described in the above note were completed with the assistance of the DARIA. I reviewed and agree with the findings presented. (Joanne Peters MD) Shasta Mujica May 13, 2017 16:34 Joanne Peters MD May 14, 2017 14:18
--- NOTE | 2017-05-13 16:39 | HHI.PR ---
Subjective Remarks The patient said that he did not like the dialysis nurse today. He did not end up getting his dialysis session. He said that he has family visiting him later on today. Discussed with nursing. Objective Vitals Vital Signs Date Time Temp Pulse Resp B/P (MAP) Pulse Ox O2 Delivery O2 Flow Rate FiO2 05/13/17 15:57 98.6 100 18 138/96 (110) 98 05/13/17 12:00 101 05/13/17 12:00 97.3 94 18 115/82 (93) 99 05/13/17 08:47 98.1 89 18 128/81 (97) 98 05/13/17 08:01 80 05/13/17 08:00 Room Air 21 05/13/17 04:04 97.5 90 20 110/66 (81) 96 05/13/17 04:00 Room Air 05/13/17 04:00 85 05/13/17 00:37 97.9 88 20 112/74 (87) 97 05/13/17 00:00 75 05/13/17 00:00 Room Air 05/12/17 21:50 97 05/12/17 20:00 Room Air 21 05/12/17 20:00 98.2 80 18 127/76 (93) 96 I/O 05/12/17 05/12/17 05/12/17 05/13/17 05/13/17 05/13/17 07:00 15:00 23:00 07:00 15:00 23:00 Output Total 600 ml Balance -600 ml Output Urine Total 600 ml # Voids 2 # Bowel Movements 1 1 Result Diagram: 05/13/1760005/13/17 06 Objective Remarks GENERAL: Well developed in no acute distress. SKIN: No rashes, ecchymoses or lesions. Cool and dry. HEAD: Atraumatic. Normocephalic. EYES: Pupils equal round and reactive. Extraocular motions intact. No scleral icterus. No injection or drainage. ENT: Nose without bleeding, purulent drainage or septal hematoma. Throat without erythema. Uvula midline. Airway patent. NECK: Trachea midline. No JVD. Supple, nontender. CARDIOVASCULAR: Irregularly irregular rhythm without murmurs, gallops, or rubs. Left forearm AV fistula with positive bruit and thrill. RESPIRATORY: Clear to auscultation. Breath sounds equal bilaterally. No wheezes , rales, or rhonchi. GASTROINTESTINAL: Abdomen soft, non-tender, nondistended. No guarding. MUSCULOSKELETAL: Extremities without clubbing or cyanosis. Left arm in sling with visible left elbow edema, right leg immobilizer in place. Capillary refill <3 seconds for left hand right foot toes. NEUROLOGICAL: Awake and alert. No focal deficits. Procedures None Medications and IVs Current Medications Medications (Trade) Dose Ordered Sig/Derrick Route Start Time Stop Time Status Last Admin (NS Flush) 2 ml UNSCH PRN IV FLUSH 05/07/17 17:00 (NS Flush) 2 ml BID IV FLUSH 05/07/17 21:00 05/13/17 08:08 (Tylenol) 650 mg Q4H PRN PO 05/07/17 17:00 (Zofran Inj) 4 mg Q6H PRN IVP 05/07/17 17:00 (Restoril) 15 mg HS PRN PO 05/07/17 17:00 (Narcan Inj) 0.4 mg UNSCH PRN IV PUSH 05/07/17 17:00 (Virginia-Colace) 1 tab BID PO 05/07/17 21:00 05/08/17 20:23 (Milk Of Magnesia Liq) 30 ml Q12H PRN PO 05/07/17 17:00 (Senokot) 17.2 mg Q12H PRN PO 05/07/17 17:00 (Dulcolax Supp) 10 mg DAILY PRN RECTAL 05/07/17 17:00 (Lactulose Liq) 30 ml DAILY PRN PO 05/07/17 17:00 (Heparin Inj) 5,000 units Q12HR SQ 05/07/17 21:00 05/12/17 20:29 (Zyloprim) 100 mg DAILY PO 05/08/17 09:00 05/13/17 08:10 (Phoslo) 2,668 mg TIDAC PO 05/07/17 17:00 05/12/17 17:38 (Lidoderm 5% Patch.12 Hr) 1 patch DAILY T-DERMAL 05/08/17 09:00 05/13/17 08:07 (Ativan) 1 mg Q8H PRN PO 05/07/17 17:15 05/12/17 20:28 (Lopressor) 12.5 mg Q12HR PO 05/07/17 21:00 05/12/17 20:27 (Proamatine) 5 mg TID@07,12,17 PO 05/07/17 17:14 05/13/17 14:44 (Creon 12-38-60) 1 cap BIDAC PO 05/08/17 07:00 05/12/17 17:34 (Protonix) 40 mg DAILY PO 05/08/17 09:00 05/13/17 08:10 (Renvela) 800 mg TIDAC PO 05/07/17 17:00 05/13/17 08:00 (Sensipar) 90 mg BIDPC PO 05/07/17 18:00 Future Hold 05/09/17 10:27 (Dilaudid) 2 mg Q4H PRN PO 05/07/17 17:15 05/13/17 08:30 (Dilaudid Pf Inj) 1 mg Q4H PRN IV 05/07/17 17:15 Miscellaneous Information 1 HS T-DERMAL 05/07/17 21:00 05/12/17 20:31 Sodium Chloride 1,000 ml @ 0 mls/hr Q0M PRN OTHER 05/08/17 15:13 (Heparin Inj) 8,000 units UNSCH PRN IV FLUSH 05/08/17 15:15 Sodium Chloride 1,000 ml @ 200 mls/hr Q5H PRN IV 05/08/17 15:13 Sodium Chloride 1,000 ml @ 0 mls/hr Q0M PRN OTHER 05/08/17 15:13 (Mannitol Inj) 12.5 gm UNSCH PRN IV 05/08/17 15:15 Albumin Human 100 ml @ 60 mls/hr UNSCH PRN IV 05/08/17 15:15 (NS Flush) 5 ml UNSCH PRN IV FLUSH 05/08/17 15:15 (Heparin Inj) UNSCH PRN .XX 05/08/17 15:15 (Gentamicin Inj) 20 mg UNSCH PRN OTHER 05/08/17 15:15 (Zofran Inj) 4 mg UNSCH PRN IV PUSH 05/08/17 15:15 (Tylenol) 650 mg UNSCH PRN PO 05/08/17 15:15 (Benadryl) 25 mg UNSCH PRN PO 05/08/17 15:15 (Nitrostat Sl) 0.4 mg UNSCH PRN SL 05/08/17 15:15 (Catapres) 0.1 mg UNSCH PRN PO 05/08/17 15:15 (Epogen Inj) 10,000 units UNSCH PRN IV PUSH 05/08/17 15:15 05/09/17 17:43 (Gelfoam 12 Mm/7 Mm Top) 1 foam UNSCH PRN TOP 05/08/17 15:15 (Emla Cream) 1 applic WITH DIALYSIS TOPICAL 05/10/17 18:00 05/13/17 12:04 A/P Problem List: (1) Atrial fibrillation with RVR ICD Code: I48.91 - Unspecified atrial fibrillation (2) Hypertension ICD Code: I10 - Essential (primary) hypertension Status: Chronic (3) End stage renal disease on dialysis ICD Code: N18.6 - End stage renal disease; Z99.2 - Dependence on renal dialysis Status: Chronic (4) Closed fracture of right patella ICD Code: S82.001A - Unspecified fracture of right patella, initial encounter for closed fracture Status: Acute (5) Closed left humeral fracture ICD Code: S42.302A - Unspecified fracture of shaft of humerus, left arm, initial encounter for closed fracture Status: Acute Assessment and Plan 41-year-old male past medical history significant for HTN, ESRD on HD, DM II, stent placement, and SVT. Recently admitted to [facility] on 04/28/17 following a fall sustained who sustained left humeral and right patella fractures both nonoperable. Patient was admitted to [facility], however developed A. fib with RVR and needed to be transferred to inpatient side for cardiology evaluation and possible procedure. A. fib with RVR at this time controlled rate. - Patient with history of SVT. Previously scheduled for cardiac procedure by on date of admission to [facility]. - EKG done while at [facility] reviewed, heart rate 114 showing A. fib with RVR. - no ablation planned. - Continue rate control. HTN - Continue metoprolol due to new onset of A. fib - discontinued Doxazosin. ESRD on HD - Patient with a history of failed kidney transplant on hemodialysis Tuesday / Tuesday/Tuesday - Completes dialysis at [facility] in [place] under the care of - Continue HD M/W/F nephrology consulted. recommended to check PO4, resumed Sensipar - plans to be on renal transplant list. Left humeral fracture Right tibial plateau fracture - Left humeral fracture to be placed in a shoulder immobilizer, nonweightbearing, conservative treatment with follow-up in 2 weeks as outpatient. PT following. - Right tibial plateau fracture conservative treatment recommendation with knee immobilizer, strict nonweightbearing, follow-up as outpatient in 2 weeks. - Pain control. - d/c back to [place] when stable. DM II -Hemoglobin A1c checked when patient was in [facility] rehabilitation, 4.2. Anemia Pica - Secondary to renal disease, patient received iron sucrose on 05/09 with dialysis treatment. Epo and Venofer by Nephrology DVT prophylaxis - Heparin subcutaneous Discharge Planning D/c to [facility] when bed available Eulogio Sunshine DO May 13, 2017 16:39
[2017-05-13] MEDS: REMOVE OLD PATCH T-DERMAL SCH (21:00)
[2017-05-14] VITALS: BP 130/83; PULSE 82; PULSE 86; RESP 18; TEMP 98.3; O2SAT 98
[2017-05-14 04:00] VITALS: BP 136/87; PULSE 86; PULSE 87; RESP 20; TEMP 97.7; O2SAT 100
[2017-05-14] MEDS: HYDROmorphone HCL 2 MG TAB PO PRN (04:10)
[2017-05-14] MEDS: LIPASE/PROTEASE/AMYLASE (12,000/38,000/60,000) CAP PO SCH ×2 (05:38→14:36)
[2017-05-14] MEDS: MIDODRINE 5 MG TAB PO SCH ×2 (05:38→14:37)
[2017-05-14] MEDS: LIDOCAINE-PRILOCAIN 2.5% CREAM 5 GM TUBE TOPICAL SCH (07:50)
[2017-05-14 08:09] VITALS: BP 143/74; PULSE 80; RESP 17; TEMP 97.6; O2SAT 100
[2017-05-14 08:37] LABS: ALBUMIN 3.5 GM/DL (3.4-5.0); BICARBONATE 26.3 MEQ/L (21.0-32.0); CALCIUM 9.2 MG/DL (8.5-10.1); PHOSPHORUS 5.1 MG/DL (2.5-4.9)
[2017-05-14 08:39] LABS: CREATININE 13.3 MG/DL (0.60-1.30)
[2017-05-14] MEDS: HEPARIN SODIUM - SQ 10,000 UNITS/ML VIAL SQ SCH (09:00)
[2017-05-14 10:14] VITALS: O2SAT 100
[2017-05-14] MEDS: EPOETIN ALFA 10,000 UNITS/ML VIAL IV PUSH PRN (11:50)
[2017-05-14] MEDS: SEVELAMER CARBONATE 800 MG TAB PO SCH ×2 (12:00→14:37)
[2017-05-14] MEDS: CALCIUM ACETATE 667 MG CAP PO SCH ×2 (12:00→14:36)
--- NOTE | 2017-05-14 14:19 | HHI.NPPN ---
Subjective History of Present Illness The patient is a 41 yo AA male who is seen at [facility] for management of his dialysis. His outpatient facility is [facility] in [place] with Dr. Vgea. He was sent here for rehab from [facility] after he sustained a right tibial fracture and left humeral fracture after fall at home on 04/28/17. He states his typical dialysis is MWF and last outpatient dialysis was 04/27/17. Reports he did not have dialysis during hospitalization in [place] until for short session. Has been on dialysis for 17 years minus 5 years from [id number] after he received a kidney transplant, but unfortunately failed and has been on HD again since 2007. He dialyzes via L forearm AVF on MWF for 5.5h treatments. Was seen initially in [place], but seen on medical floor today as he was transferred d/t A [facility]. Interval History Patient had no verbal complaints. He was seen postdialysis today. Review of Systems General General Remarks Denies any complaints Objective Data Data Vital Signs Date Time Temp Pulse Resp B/P (MAP) Pulse Ox O2 Delivery O2 Flow Rate FiO2 05/14/17 10:14 100 05/14/17 08:09 97.6 80 17 143/74 (97) 100 05/14/17 04:00 86 05/14/17 04:00 97.7 87 20 136/87 (103) 100 05/14/17 00:00 82 05/14/17 00:00 98.3 86 18 130/83 (99) 98 05/13/17 20:00 97.9 91 18 116/76 (89) 100 05/13/17 20:00 Room Air 05/13/17 20:00 85 05/13/17 19:45 98 21 05/13/17 16:00 99 05/13/17 15:57 98.6 100 18 138/96 (110) 98 -: 05/13/17 0601 05/14/17 0718 Physical Exam General Appearance: No Acute Distress, Comfortable, Obese Eyes Eye Exam: Sclera White Pulmonary Resp Exam: Clear Bilaterally, Breath Sounds Equal, No Distress Cardiology CV Exam: Regular, Normal Sinus Rhythm, Good Perfusion Gastrointestinal/Abdomen GI Exam: Soft, Non-Tender Integumentary Skin Exam: Clear, Warm, Dry Extremeties Extremities Exam: No Edema Neurologic Neuro Exam: Alert, Awake, Moving All Extremities Psychiatric Psych Exam: Appropriate Responses Assessment/Plan Discussed Condition With: Patient Problem List: (1) End stage renal disease on dialysis ICD Codes: N18.6 - End stage renal disease; Z99.2 - Dependence on renal dialysis Status: Chronic Plan: Fortunately the patient agreed to do dialysis today. Dialysis schedule somewhat erratic secondary to patient noncompliance. 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 Medications should be adjusted for the patient's ESRD. Avoid gadolinium. (2) Atrial fibrillation with RVR ICD Codes: I48.91 - Unspecified atrial fibrillation Plan: Management as per cardiology. Apparently was being considered for ablation. Mention of decrease or stopping Doxazosin. OK from renal standpoint if cardiology still wishes to do this. (3) Hypertension ICD Codes: I10 - Essential (primary) hypertension Status: Chronic Plan: Midodrine if needed with HD (4) Anemia ICD Codes: D64.9 - Anemia, unspecified Status: Chronic Plan: Epo and Venofer with HD (5) Pica in adults ICD Codes: F50.89 - Other specified eating disorder Plan: Will replete iron and electrolytes. May need psych consultation in the future. Joanne Peters MD May 14, 2017 14:19
[2017-05-14] MEDS: PANTOPRAZOLE SOD 40 MG DELAYED RELEASE TAB PO SCH (14:36)
[2017-05-14] MEDS: DOCUSATE SODIUM 50 MG/SENNA 8.6 MG TAB PO SCH (14:36)
[2017-05-14] MEDS: METOPROLOL TARTRATE 25 MG TAB PO SCH (14:36)
[2017-05-14] MEDS: ALLOPURINOL 100 MG TAB PO SCH (14:37)
[2017-05-14] MEDS: LIDOCAINE HCL 5% PATCH T-DERMAL SCH (14:39)
[2017-05-14] MEDS: SODIUM CHLORIDE 0.9% FLUSH 10 ML FLUSH IV FLUSH SCH (14:40)
[2017-05-14 16:08] VITALS: BP 137/77; PULSE 90; RESP 18; TEMP 98; O2SAT 98
== END 2017-05-14 17:13 | DRG 308 ==
LOC: N04B 15:32
PROVIDERS: ADMIT Hospitalist; ATTEND Hospitalist
PROC: 5A1D70Z Performance of Urinary Filtration, Intermittent, Less than 6 Hours Per Day (ICD-10-PCS; principal; 2017-05-09)
DX: I48.91 Unspecified atrial fibrillation (principal); N18.6 End stage renal disease; T86.12 Kidney transplant failure; I12.0 Hypertensive chronic kidney disease with stage 5 chronic kidney disease or end stage renal disease; I95.9 Hypotension, unspecified; F50.9 Eating disorder, unspecified; Z99.2 Dependence on renal dialysis; I25.10 Atherosclerotic heart disease of native coronary artery without angina pectoris; D64.9 Anemia, unspecified; F41.9 Anxiety disorder, unspecified; Z91.15 Patient's noncompliance with renal dialysis; S42.302D Unspecified fracture of shaft of humerus, left arm, subsequent encounter for fracture with routine healing; S82.141D Displaced bicondylar fracture of right tibia, subsequent encounter for closed fracture with routine healing
CPT/HCPCS: 80048; 80069; 82728; 83540; 83550; 83735; 83970; 84100; 85025; 85027; 87493; 90935; 96374; 96375; J1644; J1756; Q4081